=== PATIENT | male | born 1960 | race Caucasian/White ===

== ENCOUNTER 2017-05-13 16:29 | Inpatient (IN) ==
[2017-05-13] MEDS ORDERED: Furosemide 40 MG/4 ML VIAL IVP ONE (17:10)
[2017-05-13 17:28] LABS: Basophils # 0.1 K/mcL (0.0-0.2); Basophils % 0.5 %; Eosinophils # 0.5 K/mcL (0.0-0.6); Eosinophils % 3.3 %; Hematocrit 36.1 % (37.5-50.1); Hemoglobin 11.9 g/dL (12.9-16.9); Immature Granulocytes % 0.6 % (0-4); Lymphocytes # 1.8 K/mcL (0.6-4.6); Lymphocytes % 12.3 %; Mean Corpuscular Hemoglobin 27.1 pg (28.0-33.3); Mean Corpuscular Volume 82.2 fL (83.0-100.0); Mean Platelet Volume 9.8 fL (9.4-12.4); Monocytes # 1.1 K/mcL (0.0-1.3); Monocytes % 7.4 %; Neutrophils # 11.3 K/mcL (1.6-8.9); Nucleated Red Blood Cells 0.1 /100 WBC (0); Platelet Count 270 K/mcL (140-400); Red Blood Count 4.39 M/mcL (4.19-5.50); Red Cell Distribution Width 18.2 % (11.5-14.5); Segmented Neutrophils % 75.9 %
[2017-05-13 17:32] LABS: INR 1.1
[2017-05-13 17:35] LABS: Activated Partial Thrombo Time 32.7 Seconds (26.0-36.0)
[2017-05-13 17:44] LABS: Albumin 3.8 g/dL (3.5-5.7); Bilirubin,Direct 0.1 mg/dL (0.0-0.2); Bilirubin,Indirect 0.3 mg/dL (0.0-1.2); Bilirubin,Total 0.4 mg/dL (0.3-1.0); Calcium 8.9 mg/dL (8.6-10.3); Globulin 3.9 g/dL (2.4-3.5); Potassium 4.4 mEq/L (3.5-5.1); Total Protein 7.7 g/dL (6.4-8.9)
--- NOTE | 2017-05-13 17:50 | Emergency Department Note ---
Disposition Clinical Impression: Respiratory distress, Hypoxia Congestive heart failure Qualifiers: Heart failure type: unspecified Heart failure chronicity: acute on chronic Qualified Code(s): I50.9 - Heart failure, unspecified Disposition: Admitted As Inpatient Condition: Good Referrals: Darren Jiang, [employer] [Primary Care Provider] - Forms: ED Satisfaction Letter Time of Disposition: 19:04 General Adult HPI - General Chief complaint: ED Shortness of Breath/Dyspnea Stated complaint: giancarlo, Low O2 Source: patient Limitations: no limitations Nursing Notes Reviewed: Yes Vital Signs Reviewed: Yes - History of Present Illness HPI Narrative: 56-year-old male with significant past medical history of stage III chronic kidney disease and CHF along with diabetes and hypertension presenting to the emergency department with chief complaint of shortness of breath. Patient states for the last use had increased shortness of breath. He states the symptoms are the exact same as when he had a CHF exacerbation last year. Patient currently wears CPAP at night and states it is helping his shortness of breath has been having to wear throughout the day. Patient denies any fevers, chest pain or other infectious signs. Denies any sick contacts. Patient states approximately one year ago he was admitted for similar symptoms and diagnosed with CHF exacerbation along with pneumonia. Pain Scale: 0 - Related Data Home Medications Medication Instructions Recorded Confirmed Albuterol Sulfate [Albuterol 2 puff IH Q4HR PRN 03/20/17 03/20/17 Inhaler] Amlodipine Besylate 10 mg PO DAILY 03/20/17 03/20/17 Aspirin [Lo-Dose Aspirin EC] 81 mg PO DAILY 03/20/17 03/20/17 Atorvastatin [Lipitor] 40 mg PO HS 03/20/17 03/20/17 Insulin Degludec [Tresiba 60 unit PO DAILY 03/20/17 03/20/17 Flextouch U-200] Insulin LISPRO [HumaLOG] 5 - 15 units SQ TIDWM 03/20/17 03/20/17 Metoprolol Succinate 100 mg PO DAILY 03/20/17 03/20/17 Torsemide [Torsemide] 50 mg PO DAILY 03/20/17 03/20/17 Tramadol HCl [Ultram] 50 mg PO TID PRN 03/20/17 03/20/17 metOLazone [Zaroxolyn] 5 mg PO DAILY 03/20/17 03/20/17 Allergies Allergy/AdvReac Type Severity Reaction Status Date / Time bee venom protein (honey bee) Allergy Swelling Verified 05/13/17 16:40 of Lip/Tongue/Throat Iodinated Contrast- Oral and AdvReac Cramping Verified 03/20/17 14:06 IV Dye of the Muscles All systems ED: reviewed and negative except as stated. Constitutional: Denies: fever, chills Cardiovascular: Denies: chest pain, palpitations Respiratory: Reports: dyspnea. Denies: cough, wheezes Gastrointestinal: Denies: abdominal pain, nausea, vomiting Neurological: Denies: headache, weakness, numbness Past Medical History - Past Medical History Attestation: Yes The following information was validated with the patient. Medical history: Reports: CHF, coronary artery disease, diabetes, hyperlipidemia , hypertension, renal disease, other Surgical history: Reports: cholecystectomy, other Psychiatric history: Reports: no psych history - Social History Smoking Status: Current every day smoker Smokeless Tobacco Status: No Alcohol use: Reports: none Drug use: Reports: none Physical Exam - General Limitations: no limitations General appearance: alert - Head Head exam: atraumatic, normocephalic, normal inspection - Eye Eye exam: Present: normal appearance. Absent: scleral icterus, conjunctival injection - Neck Neck exam: Present: normal inspection, full ROM - Chest Chest inspection: Present: normal inspection, symmetric chest wall rise. Absent : tenderness, rash - Respiratory Respiratory exam: Present: accessory muscle use, other (decreased breath sounds bilateral bases ). Absent: stridor - Cardiovascular Cardiovascular exam: Present: regular rate, normal rhythm - Abdominal Exam Abdominal exam: Present: soft, Non-Tender. Absent: distention, guarding, rebound - Extremities Exam Extremities exam: Present: pedal edema, other (b/l lower extremity swelling, 2+ pitting edema) - Neurological Exam Neurological exam: Present: alert, oriented X3 - Skin Skin exam: Present: dry, intact Course Course Narrative: 56-year-old male presenting to the emergency with chief complaint shortness of breath. Upon presentation patient was hypoxic with oxygen saturation in the mid 80s. Patient was placed on nasal cannula with minimal improvement. Nonrebreather also placed on patient which brought his oxygen saturation levels up to low 90s. BiPAP was ordered. Patient has history of CHF. Patient does not look fluid overloaded on exam. We will perform basic lab work including CBC , BMP, BNP, troponin and EKG along with chest x-ray and provide the patient with Lasix at this time. Urinalysis also be completed. Patient is alert and oriented 3 in the room. Mildly hypoxic with nonrebreather but planning on putting BiPAP on the patient. Vital signs otherwise are stable. Disposition most likely will be admission for CHF exacerbation the pending laboratory and imaging results. Patient agreed to this plan. - Reevaluation(s) Reevaluation #1: Patient doing well on BiPAP with oxygen saturation 95-98%. Patient's systolic blood pressure 150 therefore we will also add Nitropaste. All labs have come back with elevated BNP. We will admit the patient to the floor at this time. The admitting physician Dr. Urena agrees to accept the patient at this time. Patient is alert and oriented 3 in the room and stable vital signs. He agrees with this plan. Vital Signs Temperature 98.2 F 05/13/17 16:41 Pulse Rate 85 05/13/17 16:41 Respiratory Rate 28 05/13/17 16:41 Blood Pressure 178/75 05/13/17 16:41 O2 Sat by Pulse Oximetry 80 05/13/17 16:41 Temperature 98.2 F 05/13/17 16:41 Pulse Rate 75 05/13/17 19:05 Respiratory Rate 12 05/13/17 19:05 Blood Pressure 141/90 05/13/17 19:05 O2 Sat by Pulse Oximetry 95 05/13/17 19:05 Oxygen Delivery Oxygen Delivery Bipap Medical Decision Making - Lab Data Lab results reviewed: Yes I reviewed the patient's lab results. Result diagrams: 05/13/17 17:10 05/13/17 17:10 Lab Results 05/13/17 05/13/17 05/13/17 Range/Units 17:10 17:10 17:10 WBC 14.9 H (4.3-11.1) K/mcL RBC 4.39 (4.19-5.50) M/mcL Hgb 11.9 L (12.9-16.9) g/dL Hct 36.1 L (37.5-50.1) % MCV 82.2 L (83.0-100.0) fL MCH 27.1 L (28.0-33.3) pg MCHC 33.0 (31.6-35.5) g/dL RDW 18.2 H (11.5-14.5) % Plt Count 270 (140-400) K/mcL MPV 9.8 (9.4-12.4) fL Immature Gran % 0.6 (0-4) % Seg Neutrophils % 75.9 % Lymphocytes % 12.3 % Monocytes % 7.4 % Eosinophils % 3.3 % Basophils % 0.5 % Neutrophils # 11.3 H (1.6-8.9) K/mcL Lymphocytes # 1.8 (0.6-4.6) K/mcL Monocytes # 1.1 (0.0-1.3) K/mcL Eosinophils # 0.5 (0.0-0.6) K/mcL Basophils # 0.1 (0.0-0.2) K/mcL Nucleated RBCs/100 WBC 0.1 H (0) /100 WBC PT 12.0 (9.4-12.1) Seconds INR 1.1 APTT 32.7 (26.0-36.0) Seconds Sodium 137 (136-145) mEq/L Potassium 4.4 (3.5-5.1) mEq/L Chloride 112 H (98-107) mEq/L Carbon Dioxide 21 L (23-29) mEq/L BUN 71 H (6-20) mg/dL Creatinine 1.95 H (0.70-1.30) mg/dL Est GFR ( Amer) 43 L (> 60) Est GFR (Non-Af Amer) 36 L (> 60) BUN/Creatinine Ratio 36 H (6-26) Glucose 144 H (70-105) mg/dL Calculated Osmolality 307 H (280-300) Calcium 8.9 (8.6-10.3) mg/dL Total Bilirubin 0.4 (0.3-1.0) mg/dL Direct Bilirubin 0.1 (0.0-0.2) mg/dL Indirect Bilirubin 0.3 (0.0-1.2) mg/dL AST 14 (13-39) Units/L ALT 13 (7-52) Units/L Alkaline Phosphatase 95 (34-104) Units/L Troponin I (< 0.04) ng/mL B-Natriuretic Peptide (Less than 100) pg/mL Serum Total Protein 7.7 (6.4-8.9) g/dL Albumin 3.8 (3.5-5.7) g/dL Globulin 3.9 H (2.4-3.5) g/dL Albumin/Globulin Ratio 1.0 L (1.1-2.2) Urine Color (Yellow) Urine Clarity (Clear) Urine pH (5.0-8.0) pH Units Ur Specific [place] (1.010-1.025) Urine Protein (Neg-Trace) mg/dL Urine Glucose (UA) (Normal) mg/dL Urine Ketones (Negative) mg/dL Urine Blood (Negative) Urine Nitrite (Negative) Urine Bilirubin (Negative) Urine Urobilinogen (Normal) mg/dL Ur Leukocyte Esterase (Negative) Urine Microscopic RBC (0-3) per hpf Urine Microscopic WBC (0-3) per hpf Ur Squamous Epith Cells (None-Few) per lpf Urine Bacteria (None-Few) per hpf Hyaline Casts (None-Few) per lpf Ur Culture Indicated? (NO) 05/13/17 05/13/17 05/13/17 Range/Units 17:10 17:10 18:09 WBC (4.3-11.1) K/mcL RBC (4.19-5.50) M/mcL Hgb (12.9-16.9) g/dL Hct (37.5-50.1) % MCV (83.0-100.0) fL MCH (28.0-33.3) pg MCHC (31.6-35.5) g/dL RDW (11.5-14.5) % Plt Count (140-400) K/mcL MPV (9.4-12.4) fL Immature Gran % (0-4) % Seg Neutrophils % % Lymphocytes % % Monocytes % % Eosinophils % % Basophils % % Neutrophils # (1.6-8.9) K/mcL Lymphocytes # (0.6-4.6) K/mcL Monocytes # (0.0-1.3) K/mcL Eosinophils # (0.0-0.6) K/mcL Basophils # (0.0-0.2) K/mcL Nucleated RBCs/100 WBC (0) /100 WBC PT (9.4-12.1) Seconds INR APTT (26.0-36.0) Seconds Sodium (136-145) mEq/L Potassium (3.5-5.1) mEq/L Chloride (98-107) mEq/L Carbon Dioxide (23-29) mEq/L BUN (6-20) mg/dL Creatinine (0.70-1.30) mg/dL Est GFR ( Amer) (> 60) Est GFR (Non-Af Amer) (> 60) BUN/Creatinine Ratio (6-26) Glucose (70-105) mg/dL Calculated Osmolality (280-300) Calcium (8.6-10.3) mg/dL Total Bilirubin (0.3-1.0) mg/dL Direct Bilirubin (0.0-0.2) mg/dL Indirect Bilirubin (0.0-1.2) mg/dL AST (13-39) Units/L ALT (7-52) Units/L Alkaline Phosphatase (34-104) Units/L Troponin I < 0.03 (< 0.04) ng/mL B-Natriuretic Peptide 518 H (Less than 100) pg/mL Serum Total Protein (6.4-8.9) g/dL Albumin (3.5-5.7) g/dL Globulin (2.4-3.5) g/dL Albumin/Globulin Ratio (1.1-2.2) Urine Color Yellow (Yellow) Urine Clarity Clear (Clear) Urine pH 6.0 (5.0-8.0) pH Units Ur Specific [place] 1.015 (1.010-1.025) Urine Protein >=300 H (Neg-Trace) mg/dL Urine Glucose (UA) 100 H (Normal) mg/dL Urine Ketones Negative (Negative) mg/dL Urine Blood Small H (Negative) Urine Nitrite Negative (Negative) Urine Bilirubin Negative (Negative) Urine Urobilinogen Normal (Normal) mg/dL Ur Leukocyte Esterase Negative (Negative) Urine Microscopic RBC 5-15 H (0-3) per hpf Urine Microscopic WBC 0-3 (0-3) per hpf Ur Squamous Epith Cells Many H (None-Few) per lpf Urine Bacteria None Seen (None-Few) per hpf Hyaline Casts None Seen (None-Few) per lpf Ur Culture Indicated? NO (NO) - Radiology Data Radiology results reviewed: Yes I reviewed the patient's radiology results. Chest X-Ray 05/13/17 17:06 IMPRESSION: Findings of pulmonary edema. D/ / 05/13/2017 18:19:26 Niles Carlton MD / ziggy Interpreting Provider: Niles Carlton MD - EKG Data EKG #1 EKG attestation: Yes I reviewed and interpreted this EKG. EKG results narrative: Sinus rhythm with sinus arrhythmia. 83 bpm. Right axis deviation. Right bundle branch block. ND interval 174, QRS 151, QTc 457. No signs of acute ST segment elevation or ischemia. No previous EKG to compare. Attestation Statement - Attestation Attestation: I examined this patient and my medical decision-making was reviewed with the Resident Physician, Dr. Venegas. I agree with the documented findings, disposition and treatment plan as described except to the extent set forth below. Patient is 56-year-old white male with a history of known CAD, CHF, diabetes and hypertension who presents to the emergency department with gradually worsening shortness of breath. Patient's also been accumulating fluid in the lower extremities bilaterally as well as in his abdominal wall. Patient is on CPAP at home and states he over the last 36 hours is been using it 24 hours a day to help with his breathing. He denies any chest pain pressure or heaviness , no diaphoresis, no abdominal pain or flank pain, no nausea vomiting. Patient had no fevers or chills and no URI symptoms or cough. On arrival patient was in respiratory distress with hypoxia with room air sats around 80%. Agree patient's physical exam findings as documented. Patient was transitioned to BiPAP on arrival IV saline well was established and labs were drawn and sent was placed on continuous cardiac monitoring and a EKG was performed. EKG was normal sinus rhythm without acute ischemia. Patient's labs show an elevated BNP and chest x-ray shows mild pulmonary edema. No infiltrates are seen or appreciated. Patient's been given IV Lasix and nitroglycerin and is much improved on BiPAP at this time. Vital signs are improved. Patient will be admitted for acute exacerbation of CHF with respiratory distress and hypoxia, case was discussed with the hospitalist who accepted patient for admission.
[2017-05-13 18:36] LABS: Bilirubin,Urine Negative (Negative); Blood,Urine Small (Negative); Clarity,Urine Clear (Clear); Color,Urine Yellow (Yellow); Glucose,Urine (UA) 100 mg/dL (Normal); Ketones,Urine Negative (Negative); Leukocyte Esterase,Urine Negative (Negative); Nitrite,Urine Negative (Negative); Protein,Urine >=300 mg/dL (Neg-Trace); Specific Gravity,Urine 1.015 (1.010-1.025); Urobilinogen,Urine Normal (Normal)
[2017-05-13 18:40] LABS: Bacteria,Urine None Seen per hpf (None-Few); Hyaline Casts,Urine None Seen per lpf (None-Few); Squamous Epithelial Cell,Urine Many per lpf (None-Few); WBC,Urine 0-3 per hpf (0-3)
[2017-05-13] MEDS ORDERED: Nitroglycerin 1 INCH/GM PACKET TP ONE (18:55)
[2017-05-13] MEDS ORDERED: Ondansetron 4 MG/2 ML VIAL IVP PRN (21:07)
[2017-05-13] MEDS ORDERED: Acetaminophen 325 MG TABLET PO PRN (21:07)
[2017-05-13] MEDS ORDERED: Naloxone 0.4 MG/ML INJ IVP PRN (21:07)
[2017-05-13] MEDS ORDERED: Mag Hydrox/Al Hydrox/Simeth 30 ML UDC PO PRN (21:07)
[2017-05-13] MEDS ORDERED: *HR* Promethazine 25 MG/ML VIAL IVP PRN (21:07)
[2017-05-13] MEDS ORDERED: *HR* HYDROcodone/Acet 5/325 mg TABLET PO PRN (21:07)
[2017-05-13] MEDS: Furosemide 40 MG/4 ML VIAL IVP SCH (22:54)
[2017-05-14] MEDS: Ipratropium/Albuterol Neb 3 ML IH SCH ×7 (00:06→23:19)
--- NOTE | 2017-05-14 01:46 | Internal Med History&Physical ---
Date of Encounter: 05/13/17 Time of Encounter: 22:30 Assessment and Plan (1) Acute exacerbation of CHF (congestive heart failure) Current visit: Yes Status: Acute Admit the pt into Tele reviewed his CXR showing pulmonary edema / inc vascular congestion due to CHF exacerbation no previous Echo's to confirm systolic vs Diastolic looks more like Systolic started him on aggressive IV diuresis Lasix 40 IV BID will check 2 D Echo in AM Strict I & O cont Metolazone Resumed home med ASA, Statin, Metoprolol Qualifiers: Qualified Code(s): I50.9 - Heart failure, unspecified (2) Acute respiratory failure with hypoxia Current visit: Yes Status: Acute Due to CHF exacerbation no signs of infection / PNA Cont Duoneb PRN Cont BiPAP for tonight stable now may need home O2 eval (3) BAUTISTA on CPAP Current visit: Yes Status: Acute (4) DM2 (diabetes mellitus, type 2) Current visit: Yes Status: Acute on ISS + Levemir Qualifiers: Qualified Code(s): E11.22 - Type 2 diabetes mellitus with diabetic chronic kidney disease; N18.3 - Chronic kidney disease, stage 3 (moderate); N18.3 - Chronic kidney disease, stage 3 (moderate); Z79.4 - USP (current) use of insulin; Z79.4 - termite technician (current) use of insulin; Z79.4 - termite technician (current ) use of insulin; Z79.4 - termite technician (current) use of insulin (5) HTN (hypertension) Current visit: Yes Status: Acute stable with home meds will resume them Qualifiers: Hypertension type: essential hypertension Qualified Code(s): I10 - Essential (primary) hypertension (6) HLD (hyperlipidemia) Current visit: Yes Status: Acute on statin Qualifiers: Hyperlipidemia type: unspecified Qualified Code(s): E78.5 - Hyperlipidemia , unspecified (7) Obesity (BMI 30-39.9) Current visit: Yes Status: Acute (8) CKD (chronic kidney disease) stage 3, GFR 30-59 ml/min Current visit: Yes Status: Acute stable Cr at baseline Internal Medicine - H&P: HPI Chief complaint: Shortness of breath Admitted From: Emergency Dept Plans for Post Hospital Care: Home History of present illness: Mr. Barksdale is a 56 year old male known PMH of CHF, coronary artery disease, diabetes, hyperlipidemia, hypertension, CKD-3 and BAUTISTA on CPAP pt presented to ER with progressively worsening SOB / AMOS and swelling in both legs. He denied any CP. No fever / chills. No recent travel history. No URI symptoms. Pt was severely dyspenic in the ER he was placed on BiPAP and given IV Lasix 40mg x 1 dose. Now pt is alert, awake and O x 3, stated he is breathing lot better now. Denied any CP. Past Med Surg Social Fam HX - Past Medical History Medical history: CHF, coronary artery disease, diabetes, hyperlipidemia, hypertension, renal disease, other Psychiatric history: no psych history - Past Surgical History Surgical History: cholecystectomy, other - Social History Smoking Status: Current every day smoker Packs per day: 1.5 Smokeless Tobacco Status: No Alcohol use: none Drug use: none - Family History Mother Family Member Ethnicity: Non- Living Status: Still Living Hx Family Endocrine Disorder: Yes (DM) Father Family Member Ethnicity: Non- Living Status: Still Living Hx Family Cardiac Disorders: Yes (HTN) Hx Family Endocrine Disorder: Yes (DM) Internal Medicine - H&P: Meds Albuterol Sulfate [Albuterol Inhaler] 2 puff IH Q6H PRN 03/20/17 [History] Amlodipine Besylate 10 mg PO DAILY 03/20/17 [History] Aspirin [Lo-Dose Aspirin EC] 81 mg PO DAILY 03/20/17 [History] Atorvastatin [Lipitor] 40 mg PO HS 03/20/17 [History] Insulin Degludec [Tresiba Flextouch U-200] 90 unit PO DAILY 03/20/17 [History] Insulin LISPRO [HumaLOG] 9 units SQ 0800,1200 03/20/17 [History] Metoprolol Succinate 100 mg PO DAILY 03/20/17 [History] Torsemide [Torsemide] 50 mg PO DAILY PRN 03/20/17 [History] Tramadol HCl [Ultram] 50 mg PO TID PRN 03/20/17 [History] metOLazone [Zaroxolyn] 5 mg PO DAILY 03/20/17 [History] Insulin LISPRO [HumaLOG] 5 unit SQ 1700 05/13/17 [History] 3 Allergy/AdvReac Type Severity Reaction Status Date / Time bee venom protein (honey bee) Allergy Swelling Verified 05/13/17 16:40 of Lip/Tongue/Throat Iodinated Contrast- Oral and AdvReac Cramping Verified 03/20/17 14:06 IV Dye of the Muscles All Systems PM: A 10-system review of systems was performed and is negative for pertinent findings except as documented above in the HPI. Review of systems: All the systems are reviewed everything is benign except the systems and symptoms I mentioned in the history of present illness - Constitutional Vitals: Temp Pulse Resp BP Pulse Ox 97.8 F 66 21 156/81 98 05/13/17 23:07 05/13/17 23:07 05/14/17 00:06 05/13/17 23:07 05/14/17 00:06 General appearance: Present: mild distress, A&O X 3, answers questions appropriately - Head Head exam: Present: atraumatic, normal inspection - Neck Neck exam general surgery: Present: supple - Respiratory Respiratory exam: Present: decreased breath sounds, rales, respiratory distress , wheezes (mild). Absent: rhonchi, tachypnea - Cardiovascular Cardiovascular exam: Present: RRR, +S1, +S2. Absent: tachycardia - GI/Abdominal GI/Abdominal exam: Present: distended, normal bowel sounds, soft. Absent: guarding, rebound, rigid, tenderness - Extremities Exam Extremities exam: Present: pedal edema (2+). Absent: calf tenderness, tenderness - Back Exam Back exam: Absent: CVA tenderness (L), CVA tenderness (R) - Neurological Exam Neurological exam: Present: alert, oriented X3 - Psychiatric Psychiatric exam: Present: normal affect, normal mood - Skin Skin exam: Absent: rash Internal Med - H&P Results - Labs CBC & Chem 7: 05/13/17 17:10 05/13/17 17:10 Labs: Cardiac Enzymes 05/13/17 Range/Units 22:26 Troponin I < 0.03 (< 0.04) ng/mL
[2017-05-14] MEDS ORDERED: *HR* Dextrose 50 % in Water (Syg) 50 ML SYRINGE IVP PRN (03:27)
[2017-05-14] MEDS ORDERED: D5% in Water 1,000 ML IVC PRN (03:27)
[2017-05-14] MEDS ORDERED: Dextrose Gel 15 GM/37.5 ML TUBE PO PRN ×2 (03:27)
[2017-05-14 04:08] LABS: Calcium 8.4 mg/dL (8.6-10.3); Chol/HDL Ratio 3.5 (0-4.9); Magnesium 2.2 mg/dL (1.6-2.6); Potassium 4.5 mEq/L (3.5-5.1)
[2017-05-14 04:30] LABS: Basophils # 0.1 K/mcL (0.0-0.2); Basophils % 0.4 %; Eosinophils # 0.4 K/mcL (0.0-0.6); Hematocrit 31.6 % (37.5-50.1); Immature Granulocytes % 0.3 % (0-4); Lymphocytes # 1.7 K/mcL (0.6-4.6); Lymphocytes % 14.6 %; Mean Corpuscular HGB Conc 31.6 g/dL (31.6-35.5); Mean Corpuscular Hemoglobin 26.3 pg (28.0-33.3); Mean Corpuscular Volume 83.2 fL (83.0-100.0); Monocytes # 0.9 K/mcL (0.0-1.3); Monocytes % 7.3 %; Neutrophils # 8.6 K/mcL (1.6-8.9); Platelet Count 235 K/mcL (140-400); Red Cell Distribution Width 18.1 % (11.5-14.5); Segmented Neutrophils % 74.4 %
[2017-05-14] MEDS: *HR* Heparin 5,000 UNIT/ML VIAL SQ SCH ×2 (04:43→17:41)
[2017-05-14] MEDS: Insulin LISPRO 300 UNITS/3 ML VIAL SQ SCH ×4 (08:53→21:05)
[2017-05-14] MEDS ORDERED: NON-FORMULARY MEDICATION 1 EACH EACH (Insulin Degludec [Tresiba Flextouch U-200] 90 UNIT) PO SCH (09:00)
[2017-05-14] MEDS: Aspirin Enteric Coated 81 MG Tablet PO SCH (09:13)
[2017-05-14] MEDS: Furosemide 40 MG/4 ML VIAL IVP SCH ×2 (09:13→17:42)
[2017-05-14] MEDS: amLODIPine 5 MG TABLET PO SCH (09:13)
[2017-05-14] MEDS: metOLazone 5 MG TABLET PO SCH (09:13)
[2017-05-14] MEDS: Metoprolol XL (24 HR) Succ 50 MG TAB.ER.24H PO SCH (09:13)
[2017-05-14] MEDS: Insulin DETEMIR 100 UNIT/ML X5UNITS SQ SCH ×2 (09:14→21:05)
--- NOTE | 2017-05-14 14:42 | Internal Med Progress Note ---
Date of Encounter: 05/14/17 Time of Encounter: 14:38 - Subjective Interval history: Patient seen and examined at bedside. Resting comfortably in bed on bipap support. Reports of feeling better since his hospitalization. Assessment and Plan (1) Acute exacerbation of CHF (congestive heart failure) Current visit: Yes Status: Acute Pt clinically improving continue bipap support and O2 supplementation as needed IV lasix BID f/u 2D echo fluid restriction diet (1.5L/day) monitor daily weights, strict I/Os continue Metolazone continue home dose of BB, ASA,statin Qualifiers: Qualified Code(s): I50.9 - Heart failure, unspecified (2) Acute respiratory failure with hypoxia Current visit: Yes Status: Acute Secondary to CHF decompensation clinically improving continue IV diuresis Please evaluate for home oxygen prior to discharge (3) BAUTISTA on CPAP Current visit: Yes Status: Acute (4) DM2 (diabetes mellitus, type 2) Current visit: Yes Status: Acute continue sliding scale insulin algorithm monitor fingerstick and blood glucose ADA diet Qualifiers: Qualified Code(s): E11.22 - Type 2 diabetes mellitus with diabetic chronic kidney disease; N18.3 - Chronic kidney disease, stage 3 (moderate); N18.3 - Chronic kidney disease, stage 3 (moderate); Z79.4 - jail (current) use of insulin; Z79.4 - jail (current) use of insulin; 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; Z79.4 - termite treater (current) use of insulin (5) HTN (hypertension) Current visit: Yes Status: Acute BP within acceptable range continue home meds Qualifiers: Hypertension type: essential hypertension Qualified Code(s): I10 - Essential (primary) hypertension (6) HLD (hyperlipidemia) Current visit: Yes Status: Acute continue statin therapy Qualifiers: Hyperlipidemia type: unspecified Qualified Code(s): E78.5 - Hyperlipidemia , unspecified (7) Obesity (BMI 30-39.9) Current visit: Yes Status: Acute (8) CKD (chronic kidney disease) stage 3, GFR 30-59 ml/min Current visit: Yes Status: Acute renal function at baseline will closely monitor given patient being on IV diuretics (9) DVT prophylaxis: Heparin SQ - Constitutional Vitals: Temp Pulse Resp BP Pulse Ox 98.7 F 67 16 138/76 96 05/14/17 12:12 05/14/17 12:12 05/14/17 12:12 05/14/17 12:12 05/14/17 12:12 General appearance: Present: A&O X 3, no acute distress, obese, answers questions appropriately - Head Head exam: Present: atraumatic, normocephalic - Respiratory Respiratory exam: Absent: respiratory distress, wheezes (scattered rales ) - Cardiovascular Cardiovascular exam: Present: RRR, +S1, +S2. Absent: diastolic murmur, gallop, rubs, systolic murmur - GI/Abdominal GI/Abdominal exam: Present: normal bowel sounds, soft, no peritoneal signs. Absent: distended, tenderness - Extremities Exam Extremities exam: Present: pedal edema, warm, radial pulses palpable and symmetrical. Absent: calf tenderness - Neurological Exam Neurological exam: Present: alert, oriented X3 Internal Medicine: Result - Labs CBC & Chem 7: 05/14/17 04:11 05/14/17 02:56 Labs: Short CBC 05/14/17 Range/Units 04:11 WBC 11.6 H (4.3-11.1) K/mcL Hgb 10.0 L D (12.9-16.9) g/dL Hct 31.6 L (37.5-50.1) % Plt Count 235 (140-400) K/mcL Neutrophils # 8.6 (1.6-8.9) K/mcL - ABG Interpretation ABG results: PT/INR, D-dimer PT 12.0 Seconds (9.4-12.1) 05/13/17 17:10 Consult Discharge Plan - Plan Referrals: Darren Jiang, [employer] [Primary Care Provider] -
--- NOTE | 2017-05-14 18:35 | Electrocardiograph Report ---
[place] [id number] Test Date: 2017-05-13 Pat Name: Nicolás Barksdale Department: 102 Room: 2A24 Gender: Computer Teacher: : 1960 Requested By: Janae Amaro Order Number: [id number] Reading MD: Carola Briceno Measurements Intervals [place] Rate: 83 P: 23 VA: 174 QRS: 108 QRSD: 151 T: 11 QT: 418 QTc: 457 Interpretive Statements SINUS RHYTHM WITH SINUS ARRHYTHMIA MARKED RIGHT AXIS DEVIATION [QRS AXIS > 100] RIGHT BUNDLE BRANCH BLOCK [120+ ms QRS DURATION, UPRIGHT V1, 40+ ms S IN I/aVL/V4/V5/V6] Electronically Signed On 05-14-2017 18:33:23 EST by Carola Briceno
[2017-05-15 03:46] LABS: Basophils # 0.1 K/mcL (0.0-0.2); Basophils % 0.6 %; Eosinophils # 0.4 K/mcL (0.0-0.6); Eosinophils % 3.6 %; Hematocrit 32.9 % (37.5-50.1); Hemoglobin 10.4 g/dL (12.9-16.9); Immature Granulocytes % 0.3 % (0-4); Lymphocytes # 1.8 K/mcL (0.6-4.6); Lymphocytes % 17.8 %; Mean Corpuscular HGB Conc 31.6 g/dL (31.6-35.5); Mean Corpuscular Hemoglobin 26.6 pg (28.0-33.3); Mean Corpuscular Volume 84.1 fL (83.0-100.0); Mean Platelet Volume 9.7 fL (9.4-12.4); Monocytes # 0.9 K/mcL (0.0-1.3); Monocytes % 8.8 %; Platelet Count 213 K/mcL (140-400); Red Blood Count 3.91 M/mcL (4.19-5.50); Segmented Neutrophils % 68.9 %
[2017-05-15 04:05] LABS: Calcium 8.6 mg/dL (8.6-10.3); Magnesium 2.1 mg/dL (1.6-2.6); Phosphorous 5.2 mg/dL (2.7-4.5); Potassium 4.1 mEq/L (3.5-5.1)
[2017-05-15] MEDS: Ipratropium/Albuterol Neb 3 ML IH SCH ×6 (04:05→23:26)
[2017-05-15] MEDS: *HR* Heparin 5,000 UNIT/ML VIAL SQ SCH ×2 (05:56→17:15)
[2017-05-15] MEDS: Insulin LISPRO 300 UNITS/3 ML VIAL SQ SCH ×4 (08:24→20:41)
[2017-05-15] MEDS: metOLazone 5 MG TABLET PO SCH (08:26)
[2017-05-15] MEDS: Metoprolol XL (24 HR) Succ 50 MG TAB.ER.24H PO SCH (08:26)
[2017-05-15] MEDS: Insulin DETEMIR 100 UNIT/ML X5UNITS SQ SCH ×2 (08:26→20:41)
[2017-05-15] MEDS: Aspirin Enteric Coated 81 MG Tablet PO SCH (08:26)
[2017-05-15] MEDS: amLODIPine 5 MG TABLET PO SCH (08:26)
[2017-05-15] MEDS: Furosemide 40 MG/4 ML VIAL IVP SCH ×2 (08:26→17:15)
--- NOTE | 2017-05-15 16:55 | Internal Med Progress Note ---
Date of Encounter: 05/15/17 Time of Encounter: 16:52 - Assessment and plan (1) Acute exacerbation of CHF (congestive heart failure) Current Visit: Yes Status: Acute Assessment and plan: per hx. suspect acute exacerbation of diastolic dysfunction. Symptomatic with dyspnea on exertion and lower extremity edema. TTE with EF 60%, moderate diastolic dysfunction, severely dilated left atrium and mild aortic stenosis. Continue IV Lasix. Daily weights, strict I's and O's. Qualifiers: Qualified Code(s): I50.9 - Heart failure, unspecified (2) CKD (chronic kidney disease) stage 3, GFR 30-59 ml/min Current Visit: Yes Status: Acute Assessment and plan: per hx. Follows with Nephrology. Renal function appears mildly worse than baseline. Continue on diuretics. Nephrology consulted (3) DM2 (diabetes mellitus, type 2) Current Visit: Yes Status: Acute Assessment and plan: per hx. Blood sugars controlled. Cont home long acting, SSI Qualifiers: Qualified Code(s): E11.22 - Type 2 diabetes mellitus with diabetic chronic kidney disease; N18.3 - Chronic kidney disease, stage 3 (moderate); N18.3 - Chronic kidney disease, stage 3 (moderate); Z79.4 - technician terminal and repeater (current) use of insulin; Z79.4 - technician terminal and repeater (current) use of insulin; Z79.4 - technician terminal and repeater (current ) use of insulin; Z79.4 - penitentiary (current) use of insulin (4) HTN (hypertension) Current Visit: Yes Status: Acute Assessment and plan: per hx. Cont home BP medications Qualifiers: Hypertension type: essential hypertension Qualified Code(s): I10 - Essential (primary) hypertension (5) BAUTISTA on CPAP Current Visit: Yes Status: Acute Assessment and plan: cont home CPAP (6) DVT prophylaxis Current Visit: Yes Status: Acute Assessment and plan: heparin - Subjective Interval history: Seen and examined at bedside, - Constitutional Vitals: Temp Pulse Resp BP Pulse Ox 98.2 F 71 16 125/66 98 05/15/17 16:09 05/15/17 16:09 05/15/17 16:09 05/15/17 16:09 05/15/17 16:09 General appearance: Present: A&O X 3, no acute distress, obese, answers questions appropriately - Head Head exam: Present: atraumatic, normocephalic - Eye Eye exam: Present: PERRL, conjuntiva pink, sclera anicteric Pupils: Present: PERRL - Neck Neck exam general surgery: Present: supple, trachea midline. Absent: lymphadenopathy - Respiratory Respiratory exam: Present: CTAB. Absent: accessory muscle use, rales, rhonchi, wheezes - Cardiovascular Cardiovascular exam: Present: RRR, +S1, +S2. Absent: diastolic murmur, gallop, rubs, systolic murmur - GI/Abdominal GI/Abdominal exam: Present: normal bowel sounds, soft, no peritoneal signs. Absent: distended, tenderness - Extremities Exam Extremities exam: Present: warm, radial pulses palpable and symmetrical. Absent : calf tenderness, cyanotic, pedal edema - Neurological Exam Neurological exam: Present: CN II-XII intact, oriented X3, no focal deficits. Absent: pronater drift, facial droop, speech deficit - Skin Skin exam: Present: dry, intact Internal Medicine: Result - Labs CBC & Chem 7: 05/15/17 03:27 05/15/17 03:27 Labs: Short CBC 05/15/17 Range/Units 03:27 WBC 10.1 (4.3-11.1) K/mcL Hgb 10.4 L (12.9-16.9) g/dL Hct 32.9 L (37.5-50.1) % Plt Count 213 (140-400) K/mcL Neutrophils # 7.0 (1.6-8.9) K/mcL BMP 05/15/17 03:27 Sodium 138 Potassium 4.1 Chloride 111 H Carbon Dioxide 22 L BUN 74 H Creatinine 2.14 H Glucose 95 Calcium 8.6 - ABG Interpretation ABG results: PT/INR, D-dimer PT 12.0 Seconds (9.4-12.1) 05/13/17 17:10 Consult Discharge Plan - Plan Referrals: Darren Jiang, CARCASS SPLITTER [Primary Care Provider] - 05/22/17 11:10 am (Please follow up as schedule...)
--- NOTE | 2017-05-15 17:49 | Nephrology Consult Note ---
Date of Encounter: 05/16/17 Time of Encounter: 17:20 Assessment and Plan (1) CARLA (acute kidney injury) Current Visit: Yes Status: Acute CARLA on CKD stage IIIb with renal risk factors: DM, obesity, diuretics, HTN and MGUS Recommend continuring the Lasix 40mg IV bid but will add Albumin 25gm IV BID to help augment the delivery of the loop diuretic to the loop of Henle as well as to help improve the intravascular volume for enhanced diuresis; ideally this will help minimize the CARLA while he needs ongoing diuresis. The metolazone is a chronic med for him Cont CPAP therapy. Consider checking a respiratory infectious panel if not already done such as Flu or RSV. Anemia: check iron studies and if low, then would rec IV iron replacement (e.g. Feraheme). Hx of MGUS and the SPEP and K/L FLC analysis demonstrated this. He has seen Hematology at [place] in the past, he said. Cont to follow a renal protective strategy. Thank you. (2) Peripheral edema Current Visit: Yes Status: Chronic See above. (3) CKD (chronic kidney disease) stage 3, GFR 30-59 ml/min Current Visit: Yes Status: Chronic See above. (4) HTN (hypertension) Current Visit: Yes Status: Chronic See above. Qualifiers: Hypertension type: essential hypertension Qualified Code(s): I10 - Essential (primary) hypertension (5) Hypoxia Current Visit: Yes Status: Acute See above. (6) Obesity (BMI 30-39.9) Current Visit: Yes Status: Chronic See above. (7) MGUS (monoclonal gammopathy of unknown significance) Current Visit: Yes Status: Chronic See above. (8) Secondary hyperparathyroidism (of renal origin) Current Visit: Yes Status: Acute start D3 replacement at 5k po daily to help suppress the SHPT (i.e. the elevated iPTH). (9) Vitamin D deficiency Current Visit: Yes Status: Acute See above. History of Present Illness - Reason for Consult Consult date: 05/15/17 Acute Kidney Injury, Chronic Kidney Disease Requesting physician: Juliana Arora - Chief Complaint Edema and Shortness of Breath - History of Present Illness Nicolás Barksdale is a very pleasant 56 y/o WM with a pmh of T2DM, obesity, HTN, CKD , MGUS (follows with a [facility] in [place]) and et al who presented to the ER with worsening edema, and shortness of breath. He recently established with me in my Nephrology CKD clinic and he missed his appt this week, so he went to the ER on his own accord, he said. He was placed on Lasix IV and now about a day into his hospitalization, he voiced already starting to feel a little better able to breath comfortably. He reported that he uses CPAP frequently. He did not affirm use of NSAIDs. He said that his swelling has been worsening over the last few weeks and became severe with associated ShOB the last few days. He did not report N/V/D or F/C or body aches or CP. No reported dysuria symptoms. He voiced that over the last day while admitted he has accidentally not collected all of his UOP. Past Med Surg Social Fam HX - Past Medical History Medical history: CHF, coronary artery disease, diabetes, hyperlipidemia, hypertension, renal disease, other Psychiatric history: no psych history - Past Surgical History Surgical History: cholecystectomy, other - Social History Smoking Status: Current every day smoker Packs per day: 1.5 Smokeless Tobacco Status: No Alcohol use: none Drug use: none - Family History Mother Family Member Ethnicity: Non- Living Status: Still Living Hx Family Endocrine Disorder: Yes (DM) Father Family Member Ethnicity: Non- Living Status: Still Living Hx Family Cardiac Disorders: Yes (HTN) Hx Family Endocrine Disorder: Yes (DM) Medications and Allergies Albuterol Sulfate [Albuterol Inhaler] 2 puff IH Q6H PRN 03/20/17 [History] Amlodipine Besylate 10 mg PO DAILY 03/20/17 [History] Aspirin [Lo-Dose Aspirin EC] 81 mg PO DAILY 03/20/17 [History] Atorvastatin [Lipitor] 40 mg PO HS 03/20/17 [History] Insulin Degludec [Tresiba Flextouch U-200] 90 unit PO DAILY 03/20/17 [History] Insulin LISPRO [HumaLOG] 9 units SQ 0800,1200 03/20/17 [History] Metoprolol Succinate 100 mg PO DAILY 03/20/17 [History] Torsemide [Torsemide] 50 mg PO DAILY PRN 03/20/17 [History] Tramadol HCl [Ultram] 50 mg PO TID PRN 12/20/17 [History] metOLazone [Zaroxolyn] 5 mg PO DAILY 03/20/17 [History] Insulin LISPRO [HumaLOG] 5 unit SQ 1700 05/13/17 [History] 3 Allergy/AdvReac Type Severity Reaction Status Date / Time bee venom protein (honey bee) Allergy Swelling Verified 05/13/17 16:40 of Lip/Tongue/Throat Iodinated Contrast- Oral and AdvReac Cramping Verified 03/20/17 14:06 IV Dye of the Muscles Review of Systems All Systems: reviewed and no additional remarkable complaints except as stated Exam - Vital Signs Vital signs: Initial Vital Signs Temp Pulse Resp BP Pulse Ox 98.2 F 85 28 178/75 80 05/13/17 16:41 05/13/17 16:41 05/13/17 16:41 05/13/17 16:41 05/13/17 16:41 Vital Signs - Last 8 Hours Temp Pulse Resp BP Pulse Ox 05/15/17 16:09 98.2 F 71 16 125/66 98 05/15/17 15:52 17 96 05/15/17 11:41 99.1 F 72 16 145/84 88 05/15/17 11:17 21 100 Intake and Output 05/15/17 05/15/17 05/15/17 07:59 15:59 23:59 Intake Total 480 / 480 Output Total 220 / 220 675 / 675 Balance -220 / -220 -195 / -195 Intake: Oral 480 / 480 Output: Urine 220 / 220 675 / 675 Other: Meal Lunch Percent of Meal Consumed 100% # Voids 1 # Bowel Movements 1 Weight 123.5 kg Blood Glucose* 211 163 Patient Weight 05/15/17 23:59 Weight 123.5 kg - General Appearance General appearance: well-developed, well-nourished, appears started age, obese EENT: ATNC, PERRL, mucous membranes moist Neck: supple Respiratory: course breath sounds Cardiology: edema, regular rate, regular rhythm, normal S1, normal S2 Gastrointestinal: normoactive bowel sounds, no tenderness, no guarding, obese Integumentary: no rash, warm and dry Neurologic: no focal deficit, no asterixis, alert and oriented x3 Musculoskeletal: no deformities, no erythema, no cyanosis Psychiatric: mood/affect appropriate, cooperative Results - Lab Results 05/16/17 04:23 05/16/17 04:23 Most recent lab results Calcium 8.6 mg/dL (8.6-10.3) 05/15/17 03:27 Phosphorus 5.2 mg/dL (2.7-4.5) H 05/15/17 03:27 Magnesium 2.1 mg/dL (1.6-2.6) 05/15/17 03:27 I reviewed the labs, med lists, vitals, imaging and progress notes both inpt and from my clinic. Consult Discharge Plan - Plan Referrals: Darren Jiang, AKHIL [Primary Care Provider] - 05/22/17 11:10 am (Please follow up as schedule...)
[2017-05-15] MEDS: Albumin 25% 25gram/100mL 25 GM/100 ML IV.SOLN IVPB SCH (20:42)
[2017-05-15 23:31] LABS: Adenovirus Not Detected (Not Detect); Coronavirus 229E Not Detected (Not Detect); Coronavirus HKU1 Not Detected (Not Detect); Coronavirus NL63 Not Detected (Not Detect); Coronavirus OC43 Not Detected (Not Detect); Human Metapneumovirus Not Detected (Not Detect); Human Rhinovirus/Enterovirus Not Detected (Not Detect); Influenza A Subtype 2009 H1 Not Detected (Not Detect); Influenza A Untypeable Not Detected (Not Detect); Influenza B Not Detected (Not Detect)
[2017-05-15 23:32] LABS: Bordetella Pertussis Not Detected (Not Detect); Chlamydophila pneumoniae Not Detected (Not Detect); Mycoplasma pneumoniae Not Detected (Not Detect); Parainfluenza Virus 1 Not Detected (Not Detect); Parainfluenza Virus 2 Not Detected (Not Detect); Parainfluenza Virus 3 Not Detected (Not Detect); Parainfluenza Virus 4 Not Detected (Not Detect); Respiratory Syncytial Virus Not Detected (Not Detect)
[2017-05-16] MEDS: Ipratropium/Albuterol Neb 3 ML IH SCH ×6 (03:25→23:28)
[2017-05-16 05:05] LABS: Basophils % 0.4 %; Eosinophils # 0.4 K/mcL (0.0-0.6); Eosinophils % 3.9 %; Hematocrit 29.1 % (37.5-50.1); Hemoglobin 9.3 g/dL (12.9-16.9); Immature Granulocytes % 0.3 % (0-4); Lymphocytes # 1.5 K/mcL (0.6-4.6); Lymphocytes % 16.7 %; Mean Corpuscular Hemoglobin 26.6 pg (28.0-33.3); Mean Corpuscular Volume 83.1 fL (83.0-100.0); Mean Platelet Volume 10.4 fL (9.4-12.4); Monocytes # 0.9 K/mcL (0.0-1.3); Neutrophils # 6.3 K/mcL (1.6-8.9); Platelet Count 184 K/mcL (140-400); Red Cell Distribution Width 17.6 % (11.5-14.5); Segmented Neutrophils % 68.7 %
[2017-05-16 05:13] LABS: Calcium 8.4 mg/dL (8.6-10.3)
[2017-05-16] MEDS: *HR* Heparin 5,000 UNIT/ML VIAL SQ SCH ×2 (05:13→17:19)
[2017-05-16] MEDS: Albumin 25% 25gram/100mL 25 GM/100 ML IV.SOLN IVPB SCH ×2 (05:13→17:19)
[2017-05-16 05:14] LABS: Phosphorous 5.4 mg/dL (2.7-4.5)
[2017-05-16] MEDS: metOLazone 5 MG TABLET PO SCH (08:15)
[2017-05-16] MEDS: Insulin LISPRO 300 UNITS/3 ML VIAL SQ SCH ×4 (08:15→20:49)
[2017-05-16] MEDS: Metoprolol XL (24 HR) Succ 50 MG TAB.ER.24H PO SCH (08:15)
[2017-05-16] MEDS: Cholecalciferol (D-3) 1,000 UNIT TABLET PO SCH (08:15)
[2017-05-16] MEDS: Furosemide 40 MG/4 ML VIAL IVP SCH ×2 (08:15→17:19)
[2017-05-16] MEDS: Aspirin Enteric Coated 81 MG Tablet PO SCH (08:15)
[2017-05-16] MEDS: amLODIPine 5 MG TABLET PO SCH (08:16)
--- NOTE | 2017-05-16 08:45 | Nephrology Progress Note ---
Date of Encounter: 05/16/17 Time of Encounter: 08:43 - Assessment and Plan (1) CARLA (acute kidney injury) Current Visit: Yes Status: Acute Kidney function stable Scr 2.17, GFR 32 but not at baseline UOP 1900ml Continue Lasix 40mg IV BID with albumin 25m g IV BID Continue strict I/Os Avoid nephrotoxins if possible (2) CKD (chronic kidney disease) stage 3, GFR 30-59 ml/min Current Visit: Yes Status: Chronic Avoid nephrotoxins (3) Iron (Fe) deficiency anemia Current Visit: Yes Status: Acute Iron 26, Tsat 10, transferrin 186, ferritin 171 Feraheme 510mg IV x once Qualifiers: Iron deficiency anemia type: unspecified iron deficiency Qualified Code(s) : D50.9 - Iron deficiency anemia, unspecified (4) Hypoxia Current Visit: Yes Status: Acute per primary team Subjective Principal diagnosis: CARLA, CKD stage 3, hypoxia Interval history: Patient seen and examined. Sitting up on side of bed, states he is feeling well. Objective - Vital Signs Vital signs: Vital Signs Temp Pulse Resp BP Pulse Ox 05/16/17 07:32 19 93 05/16/17 07:12 97.6 F 78 16 135/75 93 05/16/17 05:26 97.7 F 78 20 127/64 96 05/16/17 03:25 15 146/72 97 05/15/17 23:48 99.2 F 69 18 146/72 99 05/15/17 23:24 23 146/72 100 05/15/17 19:50 24 146/75 98 05/15/17 18:57 98 F 71 18 146/75 99 05/15/17 16:09 98.2 F 71 16 125/66 98 05/15/17 15:52 17 96 05/15/17 11:41 99.1 F 72 16 145/84 88 05/15/17 11:17 21 100 Intake and Output 05/15/17 05/16/17 05/16/17 23:59 07:59 15:59 Intake Total 1300 / 1300 1200 / 1200 300 / 300 Output Total 2175 / 2175 1900 / 1900 Balance -875 / -875 -700 / -700 300 / 300 Intake: IV Fluids 100 / 100 Flexbumin 25 gm In 100 ml @ 60 100 / 100 mls/hr IVPB Q12HR [facility] Rx#: [id number] Oral 700 / 700 1200 / 1200 300 / 300 Free Water 500 / 500 Output: Urine 2175 / 2175 1900 / 1900 Other: Meal Dinner Percent of Meal Consumed 100% Weight 122.924 kg Blood Glucose* 187 133 Patient Weight 05/16/17 23:59 Weight 122.924 kg - General Appearance General appearance: Present: well-developed, well-nourished EENT: Present: ATNC, mucous membranes moist, hearing intact, vision intact Neck: Present: supple Cardiology: Present: edema, normal S1, normal S2 Gastrointestinal: Present: no tenderness, no guarding Integumentary: Present: warm and dry Neurologic: Present: alert and oriented x3 Psychiatric: Present: mood/affect appropriate, cooperative - Lab 05/16/17 04:23 05/16/17 04:23 Most recent lab results Calcium 8.4 mg/dL (8.6-10.3) L 05/16/17 04:23 Phosphorus 5.4 mg/dL (2.7-4.5) H 05/16/17 04:23 Magnesium 2.0 mg/dL (1.6-2.6) 05/16/17 04:23 Consult Discharge Plan - Plan Referrals: Darren Jiang, JIRA ADMINISTRATOR [Primary Care Provider] - 05/22/17 11:10 am (Please follow up as schedule...)
[2017-05-16] MEDS ORDERED: Ferumoxytol 510 MG in 0.9 % Sodium Chloride 100 ML IVPB ONE (08:50)
[2017-05-16] MEDS: Insulin DETEMIR 100 UNIT/ML X5UNITS SQ SCH ×2 (09:45→20:51)
--- NOTE | 2017-05-16 16:58 | Internal Med Progress Note ---
Date of Encounter: 05/16/17 Time of Encounter: 16:56 - Assessment and plan (1) Acute exacerbation of CHF (congestive heart failure) Current Visit: Yes Status: Acute Assessment and plan: per hx. suspect acute exacerbation of diastolic dysfunction. Symptomatic with dyspnea on exertion and lower extremity edema. TTE with EF 60%, moderate diastolic dysfunction, severely dilated left atrium and mild aortic stenosis. Continue IV Lasix. Daily weights, strict I's and O's. Qualifiers: Qualified Code(s): I50.9 - Heart failure, unspecified (2) CKD (chronic kidney disease) stage 3, GFR 30-59 ml/min Current Visit: Yes Status: Chronic Assessment and plan: per hx. Follows with Nephrology. Renal function appears mildly worse than baseline. Continue IV Lasix 40 mg twice a day with albumin 25 g IV. Nephrology following. (3) DM2 (diabetes mellitus, type 2) Current Visit: Yes Status: Acute Assessment and plan: per hx. Blood sugars controlled. Cont home long acting, SSI Qualifiers: Qualified Code(s): E11.22 - Type 2 diabetes mellitus with diabetic chronic kidney disease; N18.3 - Chronic kidney disease, stage 3 (moderate); N18.3 - Chronic kidney disease, stage 3 (moderate); Z79.4 - halfway (current) use of insulin; Z79.4 - halfway (current) use of insulin; Z79.4 - termite exterminator helper (current ) use of insulin; Z79.4 - termite exterminator helper (current) use of insulin (4) HTN (hypertension) Current Visit: Yes Status: Chronic Assessment and plan: per hx. Cont home BP medications Qualifiers: Hypertension type: essential hypertension Qualified Code(s): I10 - Essential (primary) hypertension (5) BAUTISTA on CPAP Current Visit: Yes Status: Acute Assessment and plan: cont home CPAP (6) DVT prophylaxis Current Visit: Yes Status: Acute Assessment and plan: heparin - Subjective Interval history: Seen and examined at bedside, says he feels about the same. Swelling not much better. Still short of breath that is worse with exertion. No chest pain. - Constitutional Vitals: Temp Pulse Resp BP Pulse Ox 97.8 F 72 20 147/70 99 05/16/17 15:31 05/16/17 15:31 05/16/17 16:00 05/16/17 15:31 05/16/17 16:00 General appearance: Present: A&O X 3, no acute distress, obese, answers questions appropriately - Head Head exam: Present: atraumatic, normocephalic - Eye Eye exam: Present: PERRL, conjuntiva pink, sclera anicteric Pupils: Present: PERRL - Neck Neck exam general surgery: Present: supple, trachea midline. Absent: lymphadenopathy - Respiratory Respiratory exam: Present: CTAB. Absent: accessory muscle use, rales, rhonchi, wheezes - Cardiovascular Cardiovascular exam: Present: RRR, +S1, +S2. Absent: diastolic murmur, gallop, rubs, systolic murmur - GI/Abdominal GI/Abdominal exam: Present: normal bowel sounds, soft, no peritoneal signs. Absent: distended, tenderness - Extremities Exam Extremities exam: Present: pedal edema, warm, radial pulses palpable and symmetrical. Absent: calf tenderness, cyanotic - Neurological Exam Neurological exam: Present: CN II-XII intact, oriented X3, no focal deficits. Absent: pronater drift, facial droop, speech deficit - Skin Skin exam: Present: dry, intact Internal Medicine: Result - Labs CBC & Chem 7: 05/16/17 04:23 05/16/17 04:23 Labs: Short CBC 05/16/17 Range/Units 04:23 WBC 9.2 (4.3-11.1) K/mcL Hgb 9.3 L (12.9-16.9) g/dL Hct 29.1 L (37.5-50.1) % Plt Count 184 (140-400) K/mcL Neutrophils # 6.3 (1.6-8.9) K/mcL BMP 05/16/17 04:23 Sodium 139 Potassium 4.0 Chloride 111 H Carbon Dioxide 24 BUN 75 H Creatinine 2.17 H Glucose 123 H Calcium 8.4 L - ABG Interpretation ABG results: PT/INR, D-dimer PT 12.0 Seconds (9.4-12.1) 05/13/17 17:10 Consult Discharge Plan - Plan Referrals: Darren Jiang, BUSINESS SPECIALIST [Primary Care Provider] - 05/22/17 11:10 am (Please follow up as schedule...)
[2017-05-17] MEDS: Ipratropium/Albuterol Neb 3 ML IH SCH ×6 (03:59→23:01)
[2017-05-17 04:06] LABS: Calcium 8.8 mg/dL (8.6-10.3); Potassium 4.2 mEq/L (3.5-5.1)
[2017-05-17] MEDS: *HR* Heparin 5,000 UNIT/ML VIAL SQ SCH ×2 (04:47→18:05)
[2017-05-17] MEDS: Albumin 25% 25gram/100mL 25 GM/100 ML IV.SOLN IVPB SCH ×2 (04:50→18:04)
[2017-05-17] MEDS: metOLazone 5 MG TABLET PO SCH (08:12)
[2017-05-17] MEDS: Cholecalciferol (D-3) 1,000 UNIT TABLET PO SCH (08:12)
[2017-05-17] MEDS: amLODIPine 5 MG TABLET PO SCH (08:12)
[2017-05-17] MEDS: Metoprolol XL (24 HR) Succ 50 MG TAB.ER.24H PO SCH (08:13)
[2017-05-17] MEDS: Aspirin Enteric Coated 81 MG Tablet PO SCH (08:13)
[2017-05-17] MEDS: Furosemide 40 MG/4 ML VIAL IVP SCH (08:13)
[2017-05-17] MEDS: Insulin LISPRO 300 UNITS/3 ML VIAL SQ SCH ×4 (08:15→21:43)
[2017-05-17] MEDS: Insulin DETEMIR 100 UNIT/ML X5UNITS SQ SCH ×2 (08:15→21:47)
--- NOTE | 2017-05-17 11:59 | Nephrology Progress Note ---
Date of Encounter: 05/17/17 Time of Encounter: 12:00 - Assessment and Plan (1) CARLA (acute kidney injury) Current Visit: Yes Status: Acute SCr stable at 2.13, GFR 32 UOP great at 3025cc in the past 24hrs Continue current lasix/albumin regimen, lópez witch to lasix gtt per pt's request while monitoring renal fxn and increase albumin to q8 (2) Acute exacerbation of CHF (congestive heart failure) Current Visit: Yes Status: Acute Continue lasix/albumin Continue fluid restriction Qualifiers: Heart failure type: diastolic Qualified Code(s): I50.33 - Acute on chronic diastolic (congestive) heart failure (3) Iron (Fe) deficiency anemia Current Visit: Yes Status: Acute Hgb at 9.3 s/p feraheme, will monitor Qualifiers: Iron deficiency anemia type: unspecified iron deficiency Qualified Code(s) : D50.9 - Iron deficiency anemia, unspecified (4) CKD (chronic kidney disease) stage 3, GFR 30-59 ml/min Current Visit: Yes Status: Chronic Baseline GFR in the 30s Subjective Principal diagnosis: CARLA, CKD stage 3, hypoxia Interval history: pt seen and examined, interim events noted. Pt concerned not improving as rapidly as previous [facility] hospital stay at a different hospital. Pt requested lasix gtt instead. Explained he need to be cautious given his renal fxn but will proceed for now with gtt even though an intermittent q8 dosing is just as effective. +SOB with intermittent biPAP use. Pt also wanted to go home but was willing to give us another 24hrs. Objective - Vital Signs Vital signs: Vital Signs Temp Pulse Resp BP Pulse Ox 05/17/17 11:20 98.8 F 67 21 130/70 96 05/17/17 07:27 21 98 05/17/17 07:17 98.6 F 78 20 163/84 97 05/17/17 04:02 97.8 F 70 22 126/66 94 05/17/17 04:00 19 92 05/17/17 00:28 98.2 F 75 20 131/67 96 05/16/17 23:28 15 97 05/16/17 20:14 98 F 72 20 143/83 99 05/16/17 20:08 13 99 05/16/17 19:59 18 98 05/16/17 16:00 20 99 05/16/17 15:46 18 99 02/15/18 15:31 97.8 F 72 20 147/70 97 Intake and Output 05/16/17 05/17/17 05/17/17 23:59 07:59 15:59 Intake Total 100 / 100 Output Total 450 / 450 280 / 280 Balance -350 / -350 -280 / -280 Intake: IV Fluids 100 / 100 Flexbumin 25 gm In 100 ml @ 60 100 / 100 mls/hr IVPB Q12HR [facility] Rx#: [id number] Oral 0 / 0 Output: Urine 450 / 450 280 / 280 Other: Weight 122.7 kg Blood Glucose* 196 131 259 Patient Weight 05/17/17 23:59 Weight 122.7 kg - General Appearance General appearance: Present: obese, chronically ill EENT: Present: ATNC, mucous membranes moist Neck: Present: no JVD, supple Additional Comments: good areation with decreased BS bases bilat Cardiology: Present: edema (LE bilat, L>R, chronic), normal S1, normal S2 Gastrointestinal: Present: no tenderness, no guarding, obese Neurologic: Present: no focal deficit Musculoskeletal: Present: no deformities Psychiatric: Present: mood/affect appropriate - Lab 05/19/17 04:25 05/19/17 04:25 Most recent lab results Calcium 8.8 mg/dL (8.6-10.3) 05/17/17 03:17 Phosphorus 5.4 mg/dL (2.7-4.5) H 05/16/17 04:23 Magnesium 2.0 mg/dL (1.6-2.6) 05/16/17 04:23 Consult Discharge Plan - Plan Referrals: Darren Jiang, PORK CUTLET MAKER [Primary Care Provider] - 05/22/17 11:10 am (Please follow up as schedule...)
--- NOTE | 2017-05-17 12:59 | Internal Med Progress Note ---
Date of Encounter: 05/17/17 Time of Encounter: 12:57 - Assessment and plan (1) Acute exacerbation of CHF (congestive heart failure) Current Visit: Yes Status: Acute Assessment and plan: Non-compliance with low sodium diet. Uses canned foods and does not monitor daily sodium - Continue diuresis, - Strict I/Os - TTE with EF 60%, moderate diastolic dysfunction, severely dilated left atrium and mild aortic stenosis. - Nephrology on board, recommendations appreciated Patient requests more aggressive diuresis methods. We had discussion on risks of worsening kidney function with this. Qualifiers: Heart failure type: diastolic Qualified Code(s): I50.33 - Acute on chronic diastolic (congestive) heart failure (2) CKD (chronic kidney disease) stage 3, GFR 30-59 ml/min Current Visit: Yes Status: Chronic Assessment and plan: per hx. Follows with Nephrology. Renal function appears mildly worse than baseline. Continue IV Lasix 40 mg twice a day with albumin 25 g IV. Nephrology following. (3) DM2 (diabetes mellitus, type 2) Current Visit: Yes Status: Acute Assessment and plan: per hx. Blood sugars controlled. Cont home long acting, SSI Qualifiers: Qualified Code(s): E11.22 - Type 2 diabetes mellitus with diabetic chronic kidney disease; N18.3 - Chronic kidney disease, stage 3 (moderate); N18.3 - Chronic kidney disease, stage 3 (moderate); Z79.4 - custodial (current) use of insulin; Z79.4 - custodial (current) use of insulin; Z79.4 - flash drier operator (current ) use of insulin; Z79.4 - flash drier operator (current) use of insulin (4) HTN (hypertension) Current Visit: Yes Status: Chronic Assessment and plan: per hx. Cont home BP medications Qualifiers: Hypertension type: essential hypertension Qualified Code(s): I10 - Essential (primary) hypertension (5) BAUTISTA on CPAP Current Visit: Yes Status: Acute Assessment and plan: cont home CPAP (6) DVT prophylaxis Current Visit: Yes Status: Acute Assessment and plan: heparin - Subjective Interval history: No acute events. Patient currently using bipap. He requests more aggressive diuresis. - Constitutional Vitals: Temp Pulse Resp BP Pulse Ox 98.8 F 67 21 130/70 96 05/17/17 11:20 05/17/17 11:20 05/17/17 11:20 05/17/17 11:20 05/17/17 11:20 General appearance: Present: A&O X 3, no acute distress, obese, answers questions appropriately - Respiratory Respiratory exam: Present: decreased breath sounds, rales. Absent: accessory muscle use, rhonchi, wheezes - Cardiovascular Cardiovascular exam: Present: RRR, +S1, +S2. Absent: diastolic murmur, gallop, rubs, systolic murmur - Extremities Exam Extremities exam: Present: pedal edema Additional comments: 2+ bilaterally Internal Medicine: Result - Labs CBC & Chem 7: 05/16/17 04:23 05/17/17 03:17 Labs: BMP 05/17/17 03:17 Sodium 139 Potassium 4.2 Chloride 110 H Carbon Dioxide 23 BUN 77 H Creatinine 2.13 H Glucose 115 H Calcium 8.8 - ABG Interpretation ABG results: PT/INR, D-dimer PT 12.0 Seconds (9.4-12.1) 05/13/17 17:10 Consult Discharge Plan - Plan Referrals: Darren Jiang CHARGING MANIPULATOR [Primary Care Provider] - 05/22/17 11:10 am (Please follow up as schedule...)
[2017-05-17] MEDS: Furosemide 240 MG in D5% in Water 96 ML IVC SCH (14:50)
[2017-05-18] MEDS: Albumin 25% 25gram/100mL 25 GM/100 ML IV.SOLN IVPB SCH ×2 (00:06→09:13)
[2017-05-18] MEDS: Ipratropium/Albuterol Neb 3 ML IH SCH ×5 (03:30→19:06)
[2017-05-18] MEDS: *HR* Heparin 5,000 UNIT/ML VIAL SQ SCH ×2 (05:11→18:02)
--- NOTE | 2017-05-18 08:17 | Internal Med Progress Note ---
Date of Encounter: 05/18/17 Time of Encounter: 08:14 - Assessment and plan (1) Acute exacerbation of CHF (congestive heart failure) Current Visit: Yes Status: Acute Assessment and plan: Non-compliance with low sodium diet. - urine output increased. - BMP pending this AM - Continue diuresis, currently Lasix drip - Strict I/Os - TTE with EF 60%, moderate diastolic dysfunction, severely dilated left atrium and mild aortic stenosis. - Nephrology on board, recommendations appreciated Patient requests more aggressive diuresis methods. We had discussion on risks of worsening kidney function with this. Qualifiers: Heart failure type: diastolic Qualified Code(s): I50.33 - Acute on chronic diastolic (congestive) heart failure (2) CKD (chronic kidney disease) stage 3, GFR 30-59 ml/min Current Visit: Yes Status: Chronic Assessment and plan: per hx. Follows with Nephrology. Renal function appears mildly worse than baseline. Continue Lasix drip, Nephro on board. (3) DM2 (diabetes mellitus, type 2) Current Visit: Yes Status: Acute Assessment and plan: Blood sugars controlled. Cont home long acting, SSI Qualifiers: Qualified Code(s): E11.22 - Type 2 diabetes mellitus with diabetic chronic kidney disease; N18.3 - Chronic kidney disease, stage 3 (moderate); N18.3 - Chronic kidney disease, stage 3 (moderate); Z79.4 - MCFP (current) use of insulin; Z79.4 - buttermaker (current) use of insulin; Z79.4 - buttermaker (current ) use of insulin; Z79.4 - MCFP (current) use of insulin (4) HTN (hypertension) Current Visit: Yes Status: Chronic Assessment and plan: per hx. Cont home BP medications Qualifiers: Hypertension type: essential hypertension Qualified Code(s): I10 - Essential (primary) hypertension (5) BAUTISTA on CPAP Current Visit: Yes Status: Acute Assessment and plan: cont home CPAP (6) DVT prophylaxis Current Visit: Yes Status: Acute Assessment and plan: heparin - Subjective Interval history: No acute events. Patient states he had a rough night because he had to urinate frequently while taking Lasix. He denies shortness of breath though this AM he is on bipap. - Constitutional Vitals: Temp Pulse Resp BP Pulse Ox 98.2 F 81 18 159/81 93 05/18/17 07:34 05/18/17 07:34 05/18/17 07:34 05/18/17 07:34 05/18/17 07:34 General appearance: Present: A&O X 3, obese, answers questions appropriately Exam: on bipap - Head Head exam: Present: atraumatic, normocephalic - Eye Eye exam: Present: PERRL, conjuntiva pink, sclera anicteric Pupils: Present: PERRL - Neck Neck exam general surgery: Present: supple, trachea midline. Absent: lymphadenopathy - Respiratory Respiratory exam: Present: CTAB. Absent: accessory muscle use, rales, rhonchi, wheezes - Cardiovascular Cardiovascular exam: Present: RRR, +S1, +S2. Absent: diastolic murmur, gallop, rubs, systolic murmur - GI/Abdominal GI/Abdominal exam: Present: normal bowel sounds, soft, no peritoneal signs. Absent: distended, tenderness - Extremities Exam Extremities exam: Present: pedal edema, warm, radial pulses palpable and symmetrical. Absent: calf tenderness, cyanotic - Neurological Exam Neurological exam: Present: CN II-XII intact, oriented X3, no focal deficits. Absent: pronater drift, facial droop, speech deficit - Skin Skin exam: Present: dry, intact Internal Medicine: Result - Labs CBC & Chem 7: 05/16/17 04:23 05/17/17 03:17 - ABG Interpretation ABG results: PT/INR, D-dimer PT 12.0 Seconds (9.4-12.1) 05/13/17 17:10 Consult Discharge Plan - Plan Referrals: Darren Jiang, DYNAMIC ETCHING PROCESSOR [Primary Care Provider] - 05/22/17 11:10 am (Please follow up as schedule...)
[2017-05-18] MEDS: Insulin DETEMIR 100 UNIT/ML X5UNITS SQ SCH ×2 (09:12→21:49)
[2017-05-18] MEDS: Metoprolol XL (24 HR) Succ 50 MG TAB.ER.24H PO SCH (09:13)
[2017-05-18] MEDS: Cholecalciferol (D-3) 1,000 UNIT TABLET PO SCH (09:13)
[2017-05-18] MEDS: Aspirin Enteric Coated 81 MG Tablet PO SCH (09:13)
[2017-05-18] MEDS: metOLazone 5 MG TABLET PO SCH (09:13)
[2017-05-18] MEDS: amLODIPine 5 MG TABLET PO SCH (09:13)
[2017-05-18] MEDS: Furosemide 240 MG in D5% in Water 96 ML IVC SCH (09:14)
[2017-05-18] MEDS: Insulin LISPRO 300 UNITS/3 ML VIAL SQ SCH ×4 (09:14→21:49)
[2017-05-18 09:27] LABS: Calcium 9.4 mg/dL (8.6-10.3)
--- NOTE | 2017-05-18 12:55 | Nephrology Progress Note ---
Date of Encounter: 05/18/17 Time of Encounter: 12:00 - Assessment and Plan (1) CARLA (acute kidney injury) Current Visit: Yes Status: Acute SCr stable at 2.15, GFR 32 UOP great at 1455cc in the past 24hrs Continue current lasix gtt/albumin regimen (2) Acute exacerbation of CHF (congestive heart failure) Current Visit: Yes Status: Acute Continue lasix/albumin currently on lasix gtt per pt's request Continue fluid restriction Discussed imaging studies for chest and abdomen given continued symptoms with primary team, agreed on CT chest/ad/pelvis without iv contrast Qualifiers: Heart failure type: diastolic Qualified Code(s): I50.33 - Acute on chronic diastolic (congestive) heart failure (3) Iron (Fe) deficiency anemia Current Visit: Yes Status: Acute Hgb at 9.3 as of yesterday s/p j luis, will monitor Qualifiers: Iron deficiency anemia type: unspecified iron deficiency Qualified Code(s) : D50.9 - Iron deficiency anemia, unspecified (4) CKD (chronic kidney disease) stage 3, GFR 30-59 ml/min Current Visit: Yes Status: Chronic Baseline GFR in the 30s Subjective Principal diagnosis: CARLA, CKD stage 3, hypoxia Interval history: pt seen and examined feels a little better but still with SOB with increased UOP overnight with lasix gtt per pt. Also reports abdominal distention Objective - Vital Signs Vital signs: Vital Signs Temp Pulse Resp BP Pulse Ox 05/18/17 12:01 24 95 05/18/17 10:51 97.5 F L 73 18 159/83 94 05/18/17 07:34 98.2 F 81 18 159/81 93 05/18/17 04:16 97.6 F 78 20 150/74 92 05/18/17 03:30 16 93 05/18/17 01:01 168/66 05/18/17 00:03 84 18 177/76 94 05/17/17 23:01 16 91 05/17/17 20:11 98.0 F 78 24 169/76 98 05/17/17 19:36 16 92 05/17/17 16:17 97.8 F 70 21 159/89 97 05/17/17 15:28 19 92 Intake and Output 05/17/17 05/18/17 05/18/17 23:59 07:59 15:59 Intake Total 350 / 350 100 / 100 600 / 600 Output Total 1175 / 1175 1925 / 1925 800 / 800 Balance -825 / -825 -1825 / -1825 -200 / -200 Intake: IV Fluids 100 / 100 100 / 100 120 / 120 Lasix 240 MG In Dextrose 5% 96 120 / 120 ML @ 10 MG/HR 5 mls/hr IVC . Q24H [facility] Rx#:[id number] Flexbumin 25 gm In 100 ml @ 60 100 / 100 100 / 100 mls/hr IVPB Q8HR [facility] Rx#: [id number] Oral 0 / 0 480 / 480 Free Water 250 / 250 Output: Urine 1175 / 1175 1925 / 1925 800 / 800 Other: Meal Breakfast Percent of Meal Consumed 100% Weight 123.105 kg Blood Glucose* 157 129 192 Patient Weight 05/18/17 23:59 Weight 123.105 kg - General Appearance General appearance: Present: chronically ill EENT: Present: ATNC, mucous membranes moist Neck: Present: no JVD, supple Additional Comments: good areation with decreased BS bases bilat Cardiology: Present: edema (LE bilat decreasing L>R, chronic), normal S1, normal S2 Gastrointestinal: Present: no tenderness, no guarding, obese Integumentary: Present: warm and dry Neurologic: Present: no focal deficit Musculoskeletal: Present: no deformities Psychiatric: Present: mood/affect appropriate - Lab 05/19/17 04:25 05/19/17 04:25 Most recent lab results Calcium 9.4 mg/dL (8.6-10.3) 05/18/17 08:18 Phosphorus 5.4 mg/dL (2.7-4.5) H 05/16/17 04:23 Magnesium 2.0 mg/dL (1.6-2.6) 05/16/17 04:23 Consult Discharge Plan - Plan Referrals: Darren Jiang, RETORT KILN BURNER [Primary Care Provider] - 05/22/17 11:10 am (Please follow up as schedule...)
[2017-05-19] MEDS: Cefepime HCl 2,000 MG in Water for inj. (sterile) 20 ML IVP SCH ×2 (00:01→12:58)
[2017-05-19] MEDS: Albumin 25% 25gram/100mL 25 GM/100 ML IV.SOLN IVPB SCH ×4 (00:03→18:05)
[2017-05-19] MEDS: Ipratropium/Albuterol Neb 3 ML IH SCH ×7 (00:22→23:29)
[2017-05-19 05:14] LABS: Basophils % 0.5 %; Eosinophils # 0.3 K/mcL (0.0-0.6); Eosinophils % 3.4 %; Hemoglobin 9.7 g/dL (12.9-16.9); Immature Granulocytes % 0.3 % (0-4); Lymphocytes # 0.9 K/mcL (0.6-4.6); Lymphocytes % 10.8 %; Mean Corpuscular HGB Conc 31.3 g/dL (31.6-35.5); Mean Corpuscular Hemoglobin 26.1 pg (28.0-33.3); Mean Corpuscular Volume 83.6 fL (83.0-100.0); Mean Platelet Volume 10.4 fL (9.4-12.4); Monocytes # 0.8 K/mcL (0.0-1.3); Monocytes % 9.1 %; Neutrophils # 6.6 K/mcL (1.6-8.9); Platelet Count 159 K/mcL (140-400); Red Blood Count 3.71 M/mcL (4.19-5.50); Red Cell Distribution Width 17.2 % (11.5-14.5); Segmented Neutrophils % 75.9 %
[2017-05-19] MEDS: *HR* Heparin 5,000 UNIT/ML VIAL SQ SCH ×2 (05:24→18:03)
[2017-05-19 05:27] LABS: Calcium 9.4 mg/dL (8.6-10.3); Potassium 3.8 mEq/L (3.5-5.1)
--- NOTE | 2017-05-19 08:32 | Internal Med Progress Note ---
Date of Encounter: 05/19/17 Time of Encounter: 08:30 - Assessment and plan (1) Acute respiratory failure Current Visit: Yes Status: Acute Assessment and plan: Secondary to - CHF exacerbation - Pleural effusion - Hospital acquired pneumonia See plans as below Qualifiers: Respiratory failure complication: hypoxia Qualified Code(s): J96.01 - Acute respiratory failure with hypoxia (2) Acute exacerbation of CHF (congestive heart failure) Current Visit: Yes Status: Acute Assessment and plan: Non-compliance with low sodium diet. - urine output increased. - BMP pending this AM - Continue diuresis, currently Lasix drip - Strict I/Os - TTE with EF 60%, moderate diastolic dysfunction, severely dilated left atrium and mild aortic stenosis. - Nephrology on board, recommendations appreciated Qualifiers: Heart failure type: diastolic Qualified Code(s): I50.33 - Acute on chronic diastolic (congestive) heart failure (3) Pleural effusion on right Current Visit: Yes Status: Acute (4) Right lower lobe pneumonia Current Visit: Yes Status: Acute Assessment and plan: Treat as HAP since patient was admitted 2 months ago for orthopedic surgery Cefepime and Linezolid started 05/18 Follow-up sputum cultures and procalcitonin. Procalcitonin may be offset by renal disease. Qualifiers: Pneumonia type: due to unspecified organism Qualified Code(s): J18.1 - Lobar pneumonia, unspecified organism (5) CKD (chronic kidney disease) stage 3, GFR 30-59 ml/min Current Visit: Yes Status: Chronic Assessment and plan: per hx. Follows with Nephrology. Renal function appears mildly worse than baseline. Continue Lasix drip, Nephro on board. (6) DM2 (diabetes mellitus, type 2) Current Visit: Yes Status: Acute Assessment and plan: Blood sugars controlled. Cont home long acting, SSI Qualifiers: Qualified Code(s): E11.22 - Type 2 diabetes mellitus with diabetic chronic kidney disease; N18.3 - Chronic kidney disease, stage 3 (moderate); N18.3 - Chronic kidney disease, stage 3 (moderate); Z79.4 - intermediate designer (current) use of insulin; Z79.4 - USP (current) use of insulin; Z79.4 - USP (current ) use of insulin; Z79.4 - USP (current) use of insulin (7) HTN (hypertension) Current Visit: Yes Status: Chronic Assessment and plan: per hx. Cont home BP medications Qualifiers: Hypertension type: essential hypertension Qualified Code(s): I10 - Essential (primary) hypertension (8) BAUTISTA on CPAP Current Visit: Yes Status: Acute Assessment and plan: cont home CPAP (9) DVT prophylaxis Current Visit: Yes Status: Acute Assessment and plan: heparin - Subjective Interval history: . - Constitutional Vitals: Temp Pulse Resp BP Pulse Ox 98.9 F 76 18 158/70 90 05/19/17 08:07 05/19/17 08:07 05/19/17 08:07 05/19/17 08:07 05/19/17 08:07 General appearance: Present: A&O X 3, obese, answers questions appropriately Internal Medicine: Result - Labs CBC & Chem 7: 05/19/17 04:25 05/19/17 04:25 Labs: Short CBC 05/19/17 Range/Units 04:25 WBC 8.7 (4.3-11.1) K/mcL Hgb 9.7 L (12.9-16.9) g/dL Hct 31.0 L (37.5-50.1) % Plt Count 159 (140-400) K/mcL Neutrophils # 6.6 (1.6-8.9) K/mcL BMP 05/18/17 05/19/17 08:18 04:25 Sodium 140 139 Potassium 4.0 3.8 Chloride 108 H 105 Carbon Dioxide 24 27 BUN 75 H 80 H Creatinine 2.15 H 2.27 H Glucose 124 H 128 H Calcium 9.4 9.4 - ABG Interpretation ABG results: PT/INR, D-dimer PT 12.0 Seconds (9.4-12.1) 05/13/17 17:10 - Impressions Impressions Abdomen/Pelvis CT 05/18/17 15:00 IMPRESSION: 1. Moderate right pleural effusion. Extensive consolidation at the right lung base, concerning for pneumonia. 2. Trace left effusion. 3. No significant ascites. 4. Mild mediastinal lymphadenopathy, which may be reactive. 5. Coronary atherosclerosis. 6. Mild anasarca. D/ / 05/18/2017 15:07:54 Marcel Devries MD / [facility] Interpreting Provider: Marcel Devries MD Chest CT 05/18/17 15:00 IMPRESSION: 1. Moderate right pleural effusion. Extensive consolidation at the right lung base, concerning for pneumonia. 2. Trace left effusion. 3. No significant ascites. 4. Mild mediastinal lymphadenopathy, which may be reactive. 5. Coronary atherosclerosis. 6. Mild anasarca. D/ / 05/18/2017 15:07:54 Marcel Devries MD / [facility] Interpreting Provider: Marcel Devries MD Consult Discharge Plan - Plan Referrals: Darren Jiang, PROCESSOR HELPER [Primary Care Provider] - 05/22/17 11:10 am (Please follow up as schedule...)
[2017-05-19] MEDS: metOLazone 5 MG TABLET PO SCH (10:48)
[2017-05-19] MEDS: Aspirin Enteric Coated 81 MG Tablet PO SCH (10:48)
[2017-05-19] MEDS: Insulin LISPRO 300 UNITS/3 ML VIAL SQ SCH ×4 (10:48→21:41)
[2017-05-19] MEDS: Cholecalciferol (D-3) 1,000 UNIT TABLET PO SCH (10:48)
[2017-05-19] MEDS: Metoprolol XL (24 HR) Succ 50 MG TAB.ER.24H PO SCH (10:48)
[2017-05-19] MEDS: amLODIPine 5 MG TABLET PO SCH (10:48)
[2017-05-19] MEDS: Insulin DETEMIR 100 UNIT/ML X5UNITS SQ SCH ×2 (10:49→21:40)
--- NOTE | 2017-05-19 12:39 | Nephrology Progress Note ---
Date of Encounter: 05/19/17 Time of Encounter: 12:00 - Assessment and Plan (1) CARLA (acute kidney injury) Current Visit: Yes Status: Acute SCr slightly worse at 2.27, GFR 30 which is still within his range of fluctuation, likely due to lasix gtt currently on hold UOP great at 4125cc in the past 24hrs Ok with resuming intermittent dosing at lasix q12 with albumin regimen (2) Acute exacerbation of CHF (congestive heart failure) Current Visit: Yes Status: Acute Resume previous intermittent lasix/albumin now pt's request Continue fluid restriction Qualifiers: Heart failure type: diastolic Qualified Code(s): I50.33 - Acute on chronic diastolic (congestive) heart failure (3) Iron (Fe) deficiency anemia Current Visit: Yes Status: Acute Hgb at 9.7 improving s/p feraheme, will monitor Qualifiers: Iron deficiency anemia type: unspecified iron deficiency Qualified Code(s) : D50.9 - Iron deficiency anemia, unspecified (4) CKD (chronic kidney disease) stage 3, GFR 30-59 ml/min Current Visit: Yes Status: Chronic Baseline GFR in the 30s (5) Pleural effusion on right Current Visit: Yes Status: Acute Per primary team (6) Right lower lobe pneumonia Current Visit: Yes Status: Acute Antibiotics started per primary team Pt requesting swaps and cultures to isolate virus/bacteria causing PNA, will discuss with primary team Qualifiers: Pneumonia type: due to unspecified organism Qualified Code(s): J18.1 - Lobar pneumonia, unspecified organism Subjective Principal diagnosis: CARLA, CKD stage 3, hypoxia Interval history: pt seen and examined feels a little better with less SOB but upset at recent diagnosis of PNA and right pleural effusion found on CT. Primary team held lasix gtt this am due to slightly worse renal fxn. Pt requesting back on intermittent iv lasix dosing. Objective - Vital Signs Vital signs: Vital Signs Temp Pulse Resp BP Pulse Ox 05/19/17 12:00 97.6 F 76 17 146/73 91 05/19/17 11:24 17 99 05/19/17 08:07 98.9 F 76 18 158/70 90 05/19/17 07:33 14 97 05/19/17 04:33 97.9 F 74 22 148/75 98 05/19/17 04:12 19 148/75 95 05/19/17 00:31 98.4 F 72 20 139/77 95 05/19/17 00:22 21 139/77 98 05/18/17 19:28 98.0 F 74 20 125/61 95 05/18/17 19:07 16 94 05/18/17 17:04 98.1 F 75 18 165/79 98 05/18/17 16:28 21 95 Intake and Output 05/18/17 05/19/17 05/19/17 23:59 07:59 15:59 Intake Total 480 / 480 100 / 100 360 / 360 Output Total 1400 / 1400 675 / 675 Balance -920 / -920 100 / 100 -315 / -315 Intake: IV Fluids 100 / 100 0 / 0 Lasix 240 MG In Dextrose 5% 96 0 / 0 ML @ 10 MG/HR 5 mls/hr IVC . Q24H [facility] Rx#:[id number] Flexbumin 25 gm In 100 ml @ 60 100 / 100 mls/hr IVPB Q8H [facility] Rx#: [id number] Oral 480 / 480 360 / 360 Output: Urine 1400 / 1400 675 / 675 Other: Meal Dinner Breakfast Percent of Meal Consumed 100% 100% Blood Glucose* 198 189 - General Appearance General appearance: Present: chronically ill EENT: Present: ATNC, mucous membranes moist Neck: Present: no JVD, supple Additional Comments: good areation with decreased BS bases bilat Cardiology: Present: edema (LE bilat decrasing, L>R, chronic), normal S2 Gastrointestinal: Present: no tenderness, no guarding, obese Integumentary: Present: warm and dry Neurologic: Present: no focal deficit Musculoskeletal: Present: no deformities Psychiatric: Present: mood/affect appropriate - Lab 05/19/17 04:25 05/19/17 04:25 Most recent lab results Calcium 9.4 mg/dL (8.6-10.3) 05/19/17 04:25 Phosphorus 5.4 mg/dL (2.7-4.5) H 05/16/17 04:23 Magnesium 2.0 mg/dL (1.6-2.6) 05/16/17 04:23 Consult Discharge Plan - Plan Referrals: Darren Jiang, BLOOD BANK LABORATORY TECHNICIAN [Primary Care Provider] - 05/22/17 11:10 am (Please follow up as schedule...)
[2017-05-19] MEDS: Furosemide 240 MG in D5% in Water 96 ML IVC SCH (15:19)
[2017-05-19] MEDS: Furosemide 40 MG/4 ML VIAL IVP SCH (18:03)
[2017-05-19] MEDS: Cefepime HCl 2,000 MG in Water for inj. (sterile) 20 ML 20 ML IVP SCH (21:40)
[2017-05-20] MEDS: Ipratropium/Albuterol Neb 3 ML IH SCH ×5 (03:47→20:13)
[2017-05-20] MEDS: Albumin 25% 25gram/100mL 25 GM/100 ML IV.SOLN IVPB SCH ×2 (04:15→15:34)
[2017-05-20] MEDS: Cefepime HCl 2,000 MG in Water for inj. (sterile) 20 ML 20 ML IVP SCH ×2 (05:36→16:59)
[2017-05-20] MEDS: *HR* Heparin 5,000 UNIT/ML VIAL SQ SCH ×2 (05:37→16:59)
[2017-05-20 05:49] LABS: Basophils # 0.1 K/mcL (0.0-0.2); Basophils % 0.6 %; Eosinophils # 0.5 K/mcL (0.0-0.6); Hematocrit 31.1 % (37.5-50.1); Immature Granulocytes % 0.2 % (0-4); Lymphocytes # 0.9 K/mcL (0.6-4.6); Lymphocytes % 10.3 %; Mean Corpuscular HGB Conc 32.2 g/dL (31.6-35.5); Mean Corpuscular Hemoglobin 26.8 pg (28.0-33.3); Mean Corpuscular Volume 83.4 fL (83.0-100.0); Mean Platelet Volume 10.6 fL (9.4-12.4); Monocytes # 0.9 K/mcL (0.0-1.3); Neutrophils # 6.7 K/mcL (1.6-8.9); Platelet Count 166 K/mcL (140-400); Red Blood Count 3.73 M/mcL (4.19-5.50); Segmented Neutrophils % 73.9 %
[2017-05-20 06:13] LABS: Calcium 9.2 mg/dL (8.6-10.3); Potassium 3.7 mEq/L (3.5-5.1)
--- NOTE | 2017-05-20 07:52 | Internal Med Progress Note ---
Date of Encounter: 05/20/17 Time of Encounter: 07:50 - Assessment and plan (1) Acute respiratory failure Current Visit: Yes Status: Acute Assessment and plan: Secondary to - CHF exacerbation - Pleural effusion - Hospital acquired pneumonia See plans as below Qualifiers: Respiratory failure complication: hypoxia Qualified Code(s): J96.01 - Acute respiratory failure with hypoxia (2) Acute exacerbation of CHF (congestive heart failure) Current Visit: Yes Status: Acute Assessment and plan: Non-compliance with low sodium diet. - urine output increased. - BMP pending this AM - Continue diuresis, currently Lasix drip - Strict I/Os - TTE with EF 60%, moderate diastolic dysfunction, severely dilated left atrium and mild aortic stenosis. - Nephrology on board, recommendations appreciated Qualifiers: Heart failure type: diastolic Qualified Code(s): I50.33 - Acute on chronic diastolic (congestive) heart failure (3) Pleural effusion on right Current Visit: Yes Status: Acute Assessment and plan: Consult IR for thoracentesis - INR 1.1 on 05/13 (4) Right lower lobe pneumonia Current Visit: Yes Status: Acute Assessment and plan: Treat as HAP since patient was admitted 2 months ago for orthopedic surgery Cefepime and Linezolid started 05/18 Follow-up sputum cultures and procalcitonin. Procalcitonin may be offset by renal disease. Qualifiers: Pneumonia type: due to unspecified organism Qualified Code(s): J18.1 - Lobar pneumonia, unspecified organism (5) CKD (chronic kidney disease) stage 3, GFR 30-59 ml/min Current Visit: Yes Status: Chronic Assessment and plan: per hx. Follows with Nephrology. Renal function appears mildly worse than baseline. Continue Lasix drip, Nephro on board. (6) DM2 (diabetes mellitus, type 2) Current Visit: Yes Status: Acute Assessment and plan: Blood sugars controlled. Cont home long acting, SSI Qualifiers: Qualified Code(s): E11.22 - Type 2 diabetes mellitus with diabetic chronic kidney disease; N18.3 - Chronic kidney disease, stage 3 (moderate); N18.3 - Chronic kidney disease, stage 3 (moderate); Z79.4 - primary teaching assistant (current) use of insulin; Z79.4 - snf (current) use of insulin; Z79.4 - primary teaching assistant (current ) use of insulin; Z79.4 - primary teaching assistant (current) use of insulin (7) HTN (hypertension) Current Visit: Yes Status: Chronic Assessment and plan: per hx. Cont home BP medications Qualifiers: Hypertension type: essential hypertension Qualified Code(s): I10 - Essential (primary) hypertension (8) BAUTISTA on CPAP Current Visit: Yes Status: Acute Assessment and plan: cont home CPAP (9) DVT prophylaxis Current Visit: Yes Status: Acute Assessment and plan: heparin - Subjective Interval history: . - Constitutional Vitals: Temp Pulse Resp BP Pulse Ox 98.1 F 75 16 148/62 95 05/20/17 07:27 05/20/17 07:27 05/20/17 07:27 05/20/17 07:27 05/20/17 07:27 General appearance: Present: A&O X 3, obese, answers questions appropriately Internal Medicine: Result - Labs CBC & Chem 7: 05/20/17 04:29 05/20/17 04:29 Labs: Short CBC 05/20/17 Range/Units 04:29 WBC 9.0 (4.3-11.1) K/mcL Hgb 10.0 L (12.9-16.9) g/dL Hct 31.1 L (37.5-50.1) % Plt Count 166 (140-400) K/mcL Neutrophils # 6.7 (1.6-8.9) K/mcL BMP 05/20/17 04:29 Sodium 138 Potassium 3.7 Chloride 104 Carbon Dioxide 26 BUN 90 H Creatinine 2.51 H Glucose 133 H Calcium 9.2 - ABG Interpretation ABG results: PT/INR, D-dimer PT 12.0 Seconds (9.4-12.1) 05/13/17 17:10 - Impressions Impressions Abdomen/Pelvis CT 05/18/17 15:00 IMPRESSION: 1. Moderate right pleural effusion. Extensive consolidation at the right lung base, concerning for pneumonia. 2. Trace left effusion. 3. No significant ascites. 4. Mild mediastinal lymphadenopathy, which may be reactive. 5. Coronary atherosclerosis. 6. Mild anasarca. D/ / 05/18/2017 15:07:54 Marcel Devries MD / [facility] Interpreting Provider: Marcel Devries MD Chest CT 05/18/17 15:00 IMPRESSION: 1. Moderate right pleural effusion. Extensive consolidation at the right lung base, concerning for pneumonia. 2. Trace left effusion. 3. No significant ascites. 4. Mild mediastinal lymphadenopathy, which may be reactive. 5. Coronary atherosclerosis. 6. Mild anasarca. D/ / 05/18/2017 15:07:54 Marcel Devries MD / [facility] Interpreting Provider: Marcel Devries MD Consult Discharge Plan - Plan Referrals: Darren Jiang CNP [Primary Care Provider] - 05/22/17 11:10 am (Please follow up as schedule...)
[2017-05-20] MEDS: Aspirin Enteric Coated 81 MG Tablet PO SCH (08:59)
[2017-05-20] MEDS: metOLazone 5 MG TABLET PO SCH (08:59)
[2017-05-20] MEDS: Furosemide 40 MG/4 ML VIAL IVP SCH ×2 (08:59→17:00)
[2017-05-20] MEDS: Cholecalciferol (D-3) 1,000 UNIT TABLET PO SCH (08:59)
[2017-05-20] MEDS: Metoprolol XL (24 HR) Succ 50 MG TAB.ER.24H PO SCH (09:00)
[2017-05-20] MEDS: Insulin LISPRO 300 UNITS/3 ML VIAL SQ SCH ×4 (09:00→21:24)
[2017-05-20] MEDS: amLODIPine 5 MG TABLET PO SCH (09:00)
[2017-05-20] MEDS: Insulin DETEMIR 100 UNIT/ML X5UNITS SQ SCH ×2 (09:07→21:25)
--- NOTE | 2017-05-20 10:34 | IR Procedure Note ---
Date of procedure: 05/20/17 Timeout: Correct patient and procedure verified, Correct site verified, Time out performed, Skin prep completed Local anesthetic: Lidocaine 1% Indications: r effusion Procedure Performed: thoracentesis Was there an assistant manager trainee present: No Results/Findings: amount pending Estimated blood loss (cc): 1 Complications: None; Tolerated procedure well Post Procedure Treatment Plan: cxr Specimen: none
--- NOTE | 2017-05-20 17:10 | Nephrology Progress Note ---
Date of Encounter: 05/20/17 Time of Encounter: 10:15 - Assessment and Plan (1) CARLA (acute kidney injury) Status: Acute SCr slightly worse at 2.51, GFR 27, likely due to diuretics, can stop iv lasix at this time UOP good at 1150cc in the past 24hrs Avoid nephrotoxins if possible If discharged, will need followup with Dr Olson within 4 weeks (2) Acute exacerbation of CHF (congestive heart failure) Status: Acute Can taper lasix from iv to po Continue fluid restriction Qualifiers: Heart failure type: diastolic Qualified Code(s): I50.33 - Acute on chronic diastolic (congestive) heart failure (3) Iron (Fe) deficiency anemia Status: Acute Hgb at 10 improving s/p feraheme, will monitor Qualifiers: Iron deficiency anemia type: unspecified iron deficiency Qualified Code(s) : D50.9 - Iron deficiency anemia, unspecified (4) CKD (chronic kidney disease) stage 3, GFR 30-59 ml/min Status: Chronic Baseline GFR in the 30s (5) Pleural effusion on right Status: Acute Per primary team; s/p thoracentesis (6) Right lower lobe pneumonia Status: Acute Continue abx per primary team Qualifiers: Pneumonia type: due to unspecified organism Qualified Code(s): J18.1 - Lobar pneumonia, unspecified organism Subjective Principal diagnosis: CARLA, CKD stage 3, hypoxia Interval history: Pt seen and examined feels much better after thoracentesis this am and now feels ready to go home Objective - Vital Signs Vital signs: Vital Signs Temp Pulse Resp BP Pulse Ox 05/20/17 15:53 98.2 F 77 16 159/75 95 05/20/17 15:49 19 90 05/20/17 12:38 97.5 F L 73 16 158/88 95 05/20/17 11:53 15 93 05/20/17 08:25 95 05/20/17 07:35 21 95 05/20/17 07:27 98.1 F 75 16 148/62 95 05/20/17 04:32 98.1 F 80 22 142/74 98 05/20/17 03:47 18 89 05/20/17 00:02 98.0 F 72 20 128/62 96 05/19/17 23:29 19 99 05/19/17 20:40 15 98 05/19/17 18:58 98.1 F 80 24 155/73 95 Intake and Output 05/20/17 05/20/17 05/20/17 07:59 15:59 23:59 Intake Total 920 / 920 360 / 360 Output Total 800 / 800 1600 / 1600 Balance 120 / 120 -1240 / -1240 Intake: IV Fluids 420 / 420 Maxipime 2,000 MG In Water for inj. (sterile) 20 ML @ 300 mls/ hr IVP Q8H [facility] Rx#:[id number] Flexbumin 25 gm In 100 ml @ 60 100 / 100 mls/hr IVPB Q12H [facility] Rx#: [id number] Zyvox Premix 600mg/300mL 600 mg 300 / 300 In 300 ml @ 150 mls/hr IVPB Q12HR [facility] Rx#:[id number] Oral 500 / 500 360 / 360 Output: Urine 800 / 800 700 / 700 Thoracentesis 900 / 900 Other: Meal Breakfast Percent of Meal Consumed 100% Weight 121.291 kg Blood Glucose* 170 262 173 Patient Weight 05/20/17 23:59 Weight 121.291 kg - General Appearance General appearance: Present: chronically ill EENT: Present: ATNC, mucous membranes moist Neck: Present: no JVD, supple Additional Comments: improved areation bilat Cardiology: Present: edema (improving), normal S1, normal S2 Gastrointestinal: Present: no tenderness, no guarding, obese Integumentary: Present: warm and dry Neurologic: Present: no focal deficit Musculoskeletal: Present: no deformities Psychiatric: Present: mood/affect appropriate, cooperative - Lab 05/21/17 04:27 05/21/17 04:27 Most recent lab results Calcium 9.2 mg/dL (8.6-10.3) 05/20/17 04:29 Phosphorus 5.4 mg/dL (2.7-4.5) H 05/16/17 04:23 Magnesium 2.0 mg/dL (1.6-2.6) 05/16/17 04:23 Consult Discharge Plan - Plan Instructions: Heart Failure (DC), Acute Respiratory Distress Syndrome (DC), Diabetes Mellitus Type 2 in Adults (DC), Anemia (GEN) Additional Instructions: Follow-up with cardiology in 1 week for heart failure. Referrals: Darren Jiang EMERGENCY CREW SUPERVISOR [Primary Care Provider] - 05/22/17 11:10 am (Please follow up as schedule...) Skyler Olson, [Partnered Physician] - (Web request sent. Dr. Holland 's office will contact patient to schedule follow up.) Prescriptions: Cefdinir [Omnicef] 300 mg PO BIDWM #14 capsule Cholecalciferol (D-3) [Vitamin D] 5,000 unit PO DAILY #30 tablet Ferrous Sulfate 325 mg PO BIDWM #60 tablet metroNIDAZOLE [Flagyl] 500 mg PO TID #21 tablet
[2017-05-20] MEDS: Linezolid 600 MG TABLET PO SCH (21:25)
[2017-05-21] MEDS: Ipratropium/Albuterol Neb 3 ML IH SCH ×5 (00:55→16:03)
[2017-05-21] MEDS: Albumin 25% 25gram/100mL 25 GM/100 ML IV.SOLN IVPB SCH ×2 (03:43→17:32)
[2017-05-21 05:25] LABS: Basophils % 0.5 %; Eosinophils # 0.5 K/mcL (0.0-0.6); Eosinophils % 5.2 %; Hematocrit 29.9 % (37.5-50.1); Hemoglobin 9.6 g/dL (12.9-16.9); Immature Granulocytes % 0.2 % (0-4); Lymphocytes # 0.9 K/mcL (0.6-4.6); Lymphocytes % 10.5 %; Mean Corpuscular HGB Conc 32.1 g/dL (31.6-35.5); Mean Corpuscular Hemoglobin 26.6 pg (28.0-33.3); Mean Corpuscular Volume 82.8 fL (83.0-100.0); Mean Platelet Volume 10.6 fL (9.4-12.4); Monocytes # 0.8 K/mcL (0.0-1.3); Monocytes % 9.2 %; Neutrophils # 6.6 K/mcL (1.6-8.9); Platelet Count 143 K/mcL (140-400); Red Blood Count 3.61 M/mcL (4.19-5.50); Red Cell Distribution Width 16.7 % (11.5-14.5); Segmented Neutrophils % 74.4 %
[2017-05-21] MEDS: *HR* Heparin 5,000 UNIT/ML VIAL SQ SCH ×2 (06:05→17:33)
[2017-05-21] MEDS: Cefepime HCl 2,000 MG in Water for inj. (sterile) 20 ML 20 ML IVP SCH (06:05)
--- NOTE | 2017-05-21 08:11 | Internal Med Progress Note ---
Date of Encounter: 05/21/17 - Assessment and plan (1) Anemia Current Visit: Yes Status: Acute Qualifiers: Anemia type: due to chronic kidney disease Chronic kidney disease stage: stage 3 (moderate) Qualified Code(s): N18.3 - Chronic kidney disease, stage 3 (moderate); D63.1 - Anemia in chronic kidney disease; D63.1 - Anemia in chronic kidney disease (2) Acute exacerbation of CHF (congestive heart failure) Current Visit: Yes Status: Acute Qualifiers: Heart failure type: diastolic Qualified Code(s): I50.33 - Acute on chronic diastolic (congestive) heart failure (3) Acute respiratory failure Current Visit: Yes Status: Acute Qualifiers: Respiratory failure complication: hypoxia Qualified Code(s): J96.01 - Acute respiratory failure with hypoxia (4) CARLA (acute kidney injury) Current Visit: Yes Status: Acute (5) CKD (chronic kidney disease) stage 3, GFR 30-59 ml/min Current Visit: Yes Status: Chronic (6) DM2 (diabetes mellitus, type 2) Current Visit: Yes Status: Acute Qualifiers: Qualified Code(s): E11.22 - Type 2 diabetes mellitus with diabetic chronic kidney disease; N18.3 - Chronic kidney disease, stage 3 (moderate); N18.3 - Chronic kidney disease, stage 3 (moderate); Z79.4 - prison (current) use of insulin; Z79.4 - pondman (current) use of insulin; Z79.4 - pondman (current ) use of insulin; Z79.4 - pondman (current) use of insulin (7) DVT prophylaxis Current Visit: Yes Status: Acute (8) HTN (hypertension) Current Visit: Yes Status: Chronic Qualifiers: Hypertension type: essential hypertension Qualified Code(s): I10 - Essential (primary) hypertension (9) BAUTISTA on CPAP Current Visit: Yes Status: Acute (10) Right lower lobe pneumonia Current Visit: Yes Status: Acute Qualifiers: Pneumonia type: due to unspecified organism Qualified Code(s): J18.1 - Lobar pneumonia, unspecified organism - Constitutional Vitals: Temp Pulse Resp BP Pulse Ox 98 F 96 18 135/71 95 05/21/17 06:57 05/21/17 06:57 05/21/17 07:31 05/21/17 06:57 05/21/17 07:31 General appearance: Present: A&O X 3, obese, answers questions appropriately Internal Medicine: Result - Labs CBC & Chem 7: 05/21/17 04:27 05/21/17 04:27 Labs: Short CBC 05/21/17 Range/Units 04:27 WBC 8.9 (4.3-11.1) K/mcL Hgb 9.6 L (12.9-16.9) g/dL Hct 29.9 L (37.5-50.1) % Plt Count 143 (140-400) K/mcL Neutrophils # 6.6 (1.6-8.9) K/mcL BMP 05/21/17 04:27 Sodium 136 Potassium 4.0 Chloride 104 Carbon Dioxide 22 L BUN 102 H Creatinine 3.00 H Glucose 139 H Calcium 9.0 - ABG Interpretation ABG results: PT/INR, D-dimer PT 12.0 Seconds (9.4-12.1) 05/13/17 17:10 - Impressions Impressions Thoracentesis Ultrasound 05/20/17 00:00 IMPRESSION: Successful ultrasound guided thoracentesis. D/ / Marcel Devries MD / Marcel Devries MD Interpreting Provider: Marcel Devries MD Chest X-Ray 05/20/17 13:56 IMPRESSION: 1. No pneumothorax post thoracentesis. 2. Small right pleural effusion. 3. Right base atelectasis. D/ / Joon Armstrong MD / Joon Armstrong MD Interpreting Provider: Joon Armstrong MD Consult Discharge Plan - Plan Referrals: Darren Jiang, ROAD COMMISSIONER [Primary Care Provider] - 05/22/17 11:10 am (Please follow up as schedule...)
[2017-05-21] MEDS ORDERED: Torsemide 20 MG TABLET PO SCH (09:00)
[2017-05-21] MEDS: Aspirin Enteric Coated 81 MG Tablet PO SCH (09:36)
[2017-05-21] MEDS: Insulin DETEMIR 100 UNIT/ML X5UNITS SQ SCH (09:36)
[2017-05-21] MEDS: Metoprolol XL (24 HR) Succ 50 MG TAB.ER.24H PO SCH (09:36)
[2017-05-21] MEDS: Linezolid 600 MG TABLET PO SCH (09:36)
[2017-05-21] MEDS: metOLazone 5 MG TABLET PO SCH (09:36)
[2017-05-21] MEDS: Cholecalciferol (D-3) 1,000 UNIT TABLET PO SCH (09:37)
[2017-05-21] MEDS: Insulin LISPRO 300 UNITS/3 ML VIAL SQ SCH ×3 (09:37→17:31)
[2017-05-21] MEDS: amLODIPine 5 MG TABLET PO SCH (09:37)
--- NOTE | 2017-05-21 11:25 | Nephrology Progress Note ---
<Merlin Seeadam Jameson - Last Filed: 05/21/17 11:27> Date of Encounter: 05/21/17 Time of Encounter: 11:21 - Assessment and Plan (1) CARLA (acute kidney injury) Status: Acute Kidney function slightly worse Scr 3.00, GFR 22; not at baseline. Suspect worsening kidney function from recent IV Lasix which has been discontinued. Patient now back on his home med Torsemide p.o. Excellent UOP 2100 ml When patient discharged he will need a BMP in 1 week and f/u with Dr Olson in 2 weeks Continue strict I/Os Avoid nephrotoxins if possible (2) CKD (chronic kidney disease) stage 3, GFR 30-59 ml/min Status: Chronic Avoid nephrotoxins Baseline GFR in the 30s (3) Iron (Fe) deficiency anemia Status: Acute Hgb 9.6 s/p Feraheme Qualifiers: Iron deficiency anemia type: unspecified iron deficiency Qualified Code(s) : D50.9 - Iron deficiency anemia, unspecified (4) Right lower lobe pneumonia Status: Acute per primary team Continue antibiotics Qualifiers: Pneumonia type: due to unspecified organism Qualified Code(s): J18.1 - Lobar pneumonia, unspecified organism Subjective Principal diagnosis: CARLA, CKD stage 3, hypoxia Interval history: Patient seen and examined. Sitting up in chair, states he feels better. Objective - Vital Signs Vital signs: Vital Signs Temp Pulse Resp BP Pulse Ox 05/21/17 11:11 98.2 F 74 16 148/80 93 05/21/17 07:31 18 95 05/21/17 06:57 98 F 96 15 135/71 97 05/21/17 04:30 18 158/82 98 05/21/17 04:17 97.4 F L 77 17 158/82 95 05/21/17 00:55 17 137/75 99 05/20/17 23:53 98.6 F 80 17 137/75 99 05/20/17 20:33 98.2 F 73 17 127/54 97 05/20/17 20:15 18 127/54 95 05/20/17 15:53 98.2 F 77 16 159/75 95 05/20/17 15:49 19 90 05/20/17 12:38 97.5 F L 73 16 158/88 95 05/20/17 11:53 15 93 Intake and Output 05/20/17 05/21/17 05/21/17 23:59 07:59 15:59 Intake Total 360 / 360 480 / 480 Output Total 600 / 600 375 / 375 350 / 350 Balance -240 / -240 -375 / -375 130 / 130 Intake: IV Fluids 120 / 120 Maxipime 2,000 MG In Water for inj. (sterile) 20 ML @ 300 mls/ hr IVP Q12HR [facility] Rx#:[id number] Flexbumin 25 gm In 100 ml @ 60 100 / 100 mls/hr IVPB Q12H [facility] Rx#: [id number] Oral 240 / 240 480 / 480 Output: Urine 600 / 600 375 / 375 350 / 350 Other: Meal Breakfast Percent of Meal Consumed 100% Weight 125.362 kg Blood Glucose* 203 155 204 Patient Weight 05/21/17 23:59 Weight 125.362 kg - General Appearance General appearance: Present: obese EENT: Present: ATNC, mucous membranes moist, hearing intact, vision intact Neck: Present: supple Respiratory: Present: clear Cardiology: Present: edema, normal S1, normal S2 Gastrointestinal: Present: no tenderness, no guarding Integumentary: Present: warm and dry Psychiatric: Present: mood/affect appropriate, cooperative - Lab 05/21/17 04:27 05/21/17 04:27 Most recent lab results Calcium 9.0 mg/dL (8.6-10.3) 05/21/17 04:27 Phosphorus 5.4 mg/dL (2.7-4.5) H 05/16/17 04:23 Magnesium 2.0 mg/dL (1.6-2.6) 05/16/17 04:23 Consult Discharge Plan - Plan Instructions: Heart Failure (DC), Acute Respiratory Distress Syndrome (DC), Diabetes Mellitus Type 2 in Adults (DC), Anemia (GEN) Additional Instructions: Follow-up with cardiology in 1 week for heart failure. Referrals: Darren Jiang, AKHIL [Primary Care Provider] - 05/22/17 11:10 am (Please follow up as schedule...) Skyler Olson DO [Partnered Physician] - (Web request sent. Dr. Holland 's office will contact patient to schedule follow up.) Prescriptions: Cefdinir [Omnicef] 300 mg PO BIDWM #14 capsule Cholecalciferol (D-3) [Vitamin D] 5,000 unit PO DAILY #30 tablet Ferrous Sulfate 325 mg PO BIDWM #60 tablet metroNIDAZOLE [Flagyl] 500 mg PO TID #21 tablet <Christie Stafford - Last Filed: 06/03/17 00:01> Date of Encounter: 05/21/17 - Assessment and Plan (1) CARLA (acute kidney injury) Status: Acute (2) Acute exacerbation of CHF (congestive heart failure) Status: Acute Qualifiers: Heart failure type: diastolic Qualified Code(s): I50.33 - Acute on chronic diastolic (congestive) heart failure (3) Iron (Fe) deficiency anemia Status: Acute Qualifiers: Iron deficiency anemia type: unspecified iron deficiency Qualified Code(s) : D50.9 - Iron deficiency anemia, unspecified (4) CKD (chronic kidney disease) stage 3, GFR 30-59 ml/min Status: Chronic (5) Pleural effusion on right Status: Acute (6) Right lower lobe pneumonia Status: Acute Qualifiers: Pneumonia type: due to unspecified organism Qualified Code(s): J18.1 - Lobar pneumonia, unspecified organism Objective - Lab 05/21/17 04:27 05/21/17 04:27 Most recent lab results Calcium 9.0 mg/dL (8.6-10.3) 05/21/17 04:27 Phosphorus 5.4 mg/dL (2.7-4.5) H 05/16/17 04:23 Magnesium 2.0 mg/dL (1.6-2.6) 05/16/17 04:23 - Attending Attestation I examined this patient and my medical decision-making was reviewed with the Resident Physician/MEDICAL TRANSCRIPTION EDITOR. I agree with the documented findings, disposition and treatment plan as described except to the extent set forth below. Pt seen and examined feeling much better with his breathing and eager to go home. SCr still wosre at 3, GFR 22 due to diuretics, pt aware but insisting on going home today but will followup with Dr Olson within 2-4 weeks with BMP within a week. LE edema improved.Back on po diuretics.
--- NOTE | 2017-05-21 14:19 | Discharge Summary ---
- NOTES TO OUTPATIENT PROVIDER Notes to Outpatient Provider: Follow-up with basic panel ordered in 1 week. Follow up with nephrology in 2 weeks. Orders not resulted at time of discharge: Pending orders 05/15/17 11:38 Consult to Nephrology [CONS] Routine 05/19/17 04:00 Culture,Sputum with Gram Stain [RM] AM 0400 Legionella Antigen [RM] AM 0400 Respiratory Infection Panel [MOLMIC] AM 0400 S. Pneumoniae Antigen [RM] AM 0400 05/19/17 04:25 Mycoplasma pneumoniae IgG IgM AM 0400 Procalcitonin AM 0400 05/20/17 07:54 Consult to Interventional Radiology [CONS] Routine Date of Encounter: 05/21/17 Time of Encounter: 14:16 - Discharge Diagnosis (1) Acute respiratory failure Priority: Primary Status: Acute Qualifiers: Respiratory failure complication: hypoxia Qualified Code(s): J96.01 - Acute respiratory failure with hypoxia (2) Acute exacerbation of CHF (congestive heart failure) Priority: Secondary Status: Acute Qualifiers: Heart failure type: diastolic Qualified Code(s): I50.33 - Acute on chronic diastolic (congestive) heart failure (3) Anemia Priority: Secondary Status: Acute Qualifiers: Anemia type: due to chronic kidney disease Chronic kidney disease stage: stage 3 (moderate) Qualified Code(s): N18.3 - Chronic kidney disease, stage 3 (moderate); D63.1 - Anemia in chronic kidney disease; D63.1 - Anemia in chronic kidney disease (4) CARLA (acute kidney injury) Priority: Secondary Status: Acute (5) CKD (chronic kidney disease) stage 3, GFR 30-59 ml/min Priority: Secondary Status: Chronic (6) DM2 (diabetes mellitus, type 2) Priority: Secondary Status: Acute Qualifiers: Diabetes mellitus complication status: with kidney complications Diabetes mellitus complication detail: with chronic kidney disease Diabetes mellitus fdc insulin use: with fdc use Chronic kidney disease stage: stage 3 (moderate) Qualified Code(s): E11.22 - Type 2 diabetes mellitus with diabetic chronic kidney disease; N18.3 - Chronic kidney disease, stage 3 ( moderate); N18.3 - Chronic kidney disease, stage 3 (moderate); Z79.4 - joint terminal attack controller (current) use of insulin; Z79.4 - residential (current) use of insulin; Z79.4 - residential (current) use of insulin; Z79.4 - joint terminal attack controller (current) use of insulin (7) DVT prophylaxis Priority: Secondary Status: Acute (8) HTN (hypertension) Priority: Secondary Status: Chronic Qualifiers: Hypertension type: essential hypertension Qualified Code(s): I10 - Essential (primary) hypertension (9) BAUTISTA on CPAP Priority: Secondary Status: Acute (10) Right lower lobe pneumonia Priority: Secondary Status: Acute Qualifiers: Pneumonia type: due to unspecified organism Qualified Code(s): J18.1 - Lobar pneumonia, unspecified organism Hospital course: Mr. Barksdale is a 56 year old male patient with history of CHF, coronary artery disease, diabetes, hypertension and hyperlipidemia, chronic kidney disease stage III, Presented to the ER with complaints of shortness of breath and increased swelling in both lower extremities. He was diagnosed with acute exacerbation of CHF and was treated with IV Lasix. He was also hypoxic on arrival and required O2 supplementation. He was also diagnosed later with pneumonia involving the right lower lobe based on CT scan findings. He was treated with IV antibiotics for this. Patient's kidney function worsened with diuretic use and so nephrology was consulted. Patient requested Lasix drip which was started per nephrology and his urine output was closely followed. Patient did have good urine out. But his renal function has continued to worsen. Today his BUN is 102 and creatinine is 3. Patient is adamant that he be discharged home today. I discussed his case with nephrology and further evaluation, they think the patient can be discharged and needs to be followed up in 2 weeks with nephrology as outpatient. He will get lab slip to check basic panel in 1 week. Clinically he feels better overall. He did undergo thoracentesis yesterday of the right pleural effusion which is likely due to congestive heart failure. He will continue to take torsemide and Zaroxolyn per nephrology recommendations. He will follow up with his advanced solutions architect for further management of heart failure. He will complete antibiotic course with Omnicef and Flagyl for his pneumonia which could be community-acquired or aspiration related given the localization to the right lower lobe. He will follow up with his primary care provider for further management of his chronic medical issues. He is advised to continue to use CPAP for obstructive sleep apnea. Discharge discussed with: patient, nurse, case management, human performance consultant - Time Spent with Patient Total time spent providing and/or coordinating discharge services: Greater than 30 minutes (40 min) - Discharge Medications Prescriptions: Cefdinir [Omnicef] 300 mg PO BIDWM #14 capsule Cholecalciferol (D-3) [Vitamin D] 5,000 unit PO DAILY #30 tablet Ferrous Sulfate 325 mg PO BIDWM #60 tablet metroNIDAZOLE [Flagyl] 500 mg PO TID #21 tablet Home Medications: Albuterol Sulfate [Albuterol Inhaler] 2 puff IH Q6H PRN 03/20/17 [History] Amlodipine Besylate 10 mg PO DAILY 03/20/17 [History] Aspirin [Lo-Dose Aspirin EC] 81 mg PO DAILY 03/20/17 [History] Atorvastatin [Lipitor] 40 mg PO HS 03/20/17 [History] Insulin Degludec [Tresiba Flextouch U-200] 90 unit PO DAILY 03/20/17 [History] Insulin LISPRO [HumaLOG] 9 units SQ 0800,1200 03/20/17 [History] Metoprolol Succinate 100 mg PO DAILY 03/20/17 [History] Torsemide 50 mg PO DAILY PRN 03/20/17 [History] Tramadol HCl [Ultram] 50 mg PO TID PRN 03/20/17 [History] metOLazone [Zaroxolyn] 5 mg PO DAILY 03/20/17 [History] Insulin LISPRO [HumaLOG] 5 unit SQ 1700 05/13/17 [History] Cefdinir [Omnicef] 300 mg PO BIDWM #14 capsule 05/21/17 [Rx] Cholecalciferol (D-3) [Vitamin D] 5,000 unit PO DAILY #30 tablet 05/21/17 [Rx] Ferrous Sulfate 325 mg PO BIDWM #60 tablet 05/21/17 [Rx] metroNIDAZOLE [Flagyl] 500 mg PO TID #21 tablet 05/21/17 [Rx] Allergies/Adverse Reactions: 3 Allergy/AdvReac Type Severity Reaction Status Date / Time bee venom protein (honey bee) Allergy Swelling Verified 05/13/17 16:40 of Lip/Tongue/Throat Iodinated Contrast- Oral and AdvReac Cramping Verified 03/20/17 14:06 IV Dye of the Muscles Date of admission: 05/14/17 03:10 Primary care physician: Darren Jiang CNP Consults: 05/15/17 11:38 Consult to Nephrology [CONS] Routine Consulting Provider: Kidney Elsi/RACHEL/JOSHUA/RICA Reason for Consult: Pt known to you; acute on chronic kidney dz Call Completed: Yes 05/20/17 07:54 Consult to Interventional Radiology [CONS] Routine Consulting Provider: Radiology Interventional Cols Reason for Consult: Right pleural effusion Call Completed: Yes Discharging clinician: Iliana Dumont Anticipated date of discharge: 05/21/17 - Constitutional Vitals: Temp Pulse Resp BP Pulse Ox 98.2 F 74 14 148/80 92 05/21/17 11:11 05/21/17 11:11 05/21/17 11:32 05/21/17 11:11 05/21/17 11:32 General appearance: Present: cooperative, A&O X 3, obese, answers questions appropriately - Neck Neck exam general surgery: Present: supple, trachea midline. Absent: lymphadenopathy - Respiratory Respiratory exam: Present: CTAB. Absent: accessory muscle use, rales, rhonchi, wheezes - Cardiovascular Cardiovascular exam: Present: RRR, +S1, +S2. Absent: diastolic murmur, gallop, rubs, systolic murmur - GI/Abdominal GI/Abdominal exam: Present: normal bowel sounds, soft, no peritoneal signs. Absent: distended, tenderness - Extremities Exam Extremities exam: Present: pedal edema, warm, radial pulses palpable and symmetrical. Absent: calf tenderness, cyanotic - Patient Status Disposition: Home, Self-Care Condition: Fair Functional capacity at discharge: uses cane/walker Overall status at discharge: patient is progressing back to baseline - Ambulatory Orders Ambulatory Orders: Basic Metabolic Panel [CHEM] Time Frame: 1 Week, Facility: [facility], Location: Lab - Discharge Instructions Instructions: Heart Failure (DC), Acute Respiratory Distress Syndrome (DC), Diabetes Mellitus Type 2 in Adults (DC), Anemia (GEN) Follow Up With: Darren Jiang CNP [Primary Care Provider] - 05/22/17 11:10 am (Please follow up as schedule...) Skyler Olson, [Partnered Physician] - (Web request sent. Dr. Holland 's office will contact patient to schedule follow up.) Additional Instructions: Follow-up with cardiology in 1 week for heart failure. - Diet and Activity Activity: increase activity as tolerated Diet: diabetic diet, low fat, low cholesterol, low salt diet
[2017-05-21] MEDS ORDERED: metroNIDAZOLE 500 MG TABLET PO SCH (15:00)
[2017-05-21 16:30] VITALS: BP 153/88
[2017-05-21] MEDS ORDERED: Cefdinir 300 MG CAPSULE PO SCH (17:00)
[2017-05-22 07:49] LABS: Mycoplasma pneumoniae IgG 0.81 U/L (<=0.09)
== END 2017-05-21 18:30 | disposition home or self-care (01) | DRG 291 ==
LOC: EMEROO 16:29 → 2ANU 16:29 → SUATTDRO 05-14 03:10
PROVIDERS: ADMIT Internal Medicine; ATTEND Internal Medicine